=== PATIENT | female | born 1960 | race Caucasian/White ===

== ENCOUNTER 2016-12-11 07:20 | Day surgery (SDC) | payer MEDICAID ==
[~2016-12-11 07:20] MED LIST: Bupivacaine 0.25% 30 ML SDV ONE; Lactated Ringers 1,000 ML IV SCH; Lidocaine 1% 30 ML SDV ONE; Lidocaine 1% 4 ML ONE; Lidocaine 1%/Sod Bicarbonate in NS 8.4% 1 ML Syringe PRN; Midazolam 1 MG/ML 2 ML SDV ONE; Propofol 200 MG/20 ML SDV ONE; Sodium Chloride 0.9% 10 ML Syringe FLUSH PRN; Triamcinolone Acetonide 40 MG/ML 1 ML MDV ONE; fentaNYL 100 MCG/2 ML SDV ONE
--- NOTE | 2016-12-11 07:26 | PCM.PREANE ---
Preanesthetic Assessment - Anesthesia/Transfusion/Family Hx Anesthesia History: Prior Anesthesia Without Reaction Family History of Anesthesia Reaction: No Transfusion History: Prior Transfusion Without Reaction Intubation History: Unknown - Review of Systems General: Weakness, Fatigue Pulmonary: No Symptoms (COPD/ smokes 1/4 pack per day for 30years /History of pulmonary nodule), Cough Cardiovascular: Palpitations, Lightheadedness Gastrointestinal: No Symptoms (GERD) Neurological: Tingling (bilateral hands), Weakness Other: Reports: None (ADD), Sinus Problem (seasonal allergies), Neck Pain ( Chronic neck/back pain), Depression - Physical Assessment NPO Status Date: 12/10/16 NPO Status Time: 23:45 Pulse: 68 O2 Sat by Pulse Oximetry: 96 Respiratory Rate: 16 Blood Pressure: 145/95 Temperature: 36.9 C Height: 1.73 m Weight: 64 kg ASA Class: 2 Mental Status: Alert & Oriented x3 Airway Class: Mallampati = 2 Dentition: Reports: Broken Tooth/Teeth, Missing Tooth/Teeth, Caries Thyro-Mental Finger Breadths: 3 Mouth Opening Finger Breadths: 3 ROM/Head Extension: Full Lungs: Clear to Auscultation, Normal Respiratory Effort Cardiovascular: Regular Rate, Regular Rhythm, No Murmurs - Lab Values: Laboratory Last Values MRSA (PCR) Negative 11/21/16 12:58 Labs reviewed and noted and in acceptable ranges to proceed with scheduled surgery. - Imaging/EKG Impressions: EKG: SR rate= 65 - Allergies Allergies/Adverse Reactions: Allergies Allergy/AdvReac Type Severity Reaction Status Date / Time clindamycin Allergy Swelling Verified 12/10/16 14:01 latex Allergy Rash Verified 10/14/13 11:49 - Anesthesia Plan Pre-Op Medication Ordered: None - Acknowledgements Anesthesia Type Planned: MAC (Local/Mac) Pt an Appropriate Candidate for the Planned Anesthesia: Yes Alternatives and Risks of Anesthesia Discussed w Pt/Guardian: Yes Pt/Guardian Understands and Agrees with Anesthesia Plan: Yes PreAnesthesia Questionnaire Respiratory History: Reports: COPD, Other (See Below) Other Respiratory History: pulmonary nodule Musculoskeletal History: Reports: Other (See Below) Other Musculoskeletal History: carpal tunnel syndrome Psychiatric History: Reports: ADD, Depression - Past Surgical History HEENT Surgical History: Reports: Tonsillectomy GI Surgical History: Reports: Hernia Repair/Other, Other (See Below) Other GI Surgeries/Procedures: duodenal switch procedure, laparotomy Female Surgical History: Reports: Tubal Ligation - SUBSTANCE USE Smoking Status *Q: Current Every Day Smoker Tobacco Use Within Last Twelve Months: Cigarettes Recreational Drug Use History: No - HOME MEDS Home Medications: Home Meds Escitalopram [Lexapro] 5 mg PO DAILY 12/12/13 [History] Ibuprofen 200 mg PO ASDIRECTED 12/12/13 [History] buPROPion [Wellbutrin XL] 300 mg PO BEDTIME 12/12/13 [History] tiZANidine [Zanaflex] 2 mg PO DAILY 12/12/13 [History] Dextroamphetamine/Amphetamine [Amphetamine Salts] 30 mg PO DAILY 12/10/16 [ History] Ferrous Sulfate [Iron] 325 mg PO DAILY 12/10/16 [History] Meloxicam [Mobic] 15 mg PO DAILY 12/10/16 [History] Penicillin V Potassium [IJD: Penicillin V Potassium] 500 mg PO TID 12/10/16 [ History] Zolpidem [Ambien] 10 mg PO ASDIRECTED 12/10/16 [History] oxyCODONE HCl/Acetaminophen [Percocet 10-325 mg Tablet] 1 tab PO ASDIRECTED PRN 12/10/16 [History] - CURRENT (IN HOUSE) MEDS Current Meds: Current Medications Lactated Ringer's (Ringers, Lactated) 1,000 mls @ 125 mls/hr IV ASDIRECTED TEVIN Stop: 12/11/16 23:00 Lidocaine/Sodium Bicarbonate (Buffered Lidocaine 1% In Ns 8.4%) 0.25 ml .XX ONETIME PRN PRN Reason: Prior to IV Start Stop: 12/11/16 18:00 Sodium Chloride (Saline Flush) 10 ml FLUSH ASDIRECTED PRN PRN Reason: Keep Vein Open Stop: 12/11/16 18:00 Discontinued Medications Bupivacaine HCl (Marcaine 0.25%) Confirm Administered Dose 30 ml .ROUTE .STK- MED ONE Stop: 12/11/16 06:55 Fentanyl (Sublimaze) Confirm Administered Dose 100 mcg .ROUTE .STK-MED ONE Stop: 12/11/16 07:12 Lidocaine HCl (Xylocaine-Mpf 1%) Confirm Administered Dose 4 mls @ as directed .ROUTE .STK-MED ONE Stop: 12/11/16 07:11 Lidocaine HCl (Xylocaine-Mpf 1%) Confirm Administered Dose 30 ml .ROUTE .STK- MED ONE Stop: 12/11/16 06:55 Midazolam HCl (Versed 1 Mg/Ml) Confirm Administered Dose 2 mg .ROUTE .STK-MED ONE Stop: 12/11/16 07:12 Propofol (Diprivan 20 Ml) Confirm Administered Dose 200 mg .ROUTE .STK-MED ONE Stop: 12/11/16 07:11 Triamcinolone Acetonide (Kenalog-40) Confirm Administered Dose 40 mg .ROUTE .STK -MED ONE Stop: 12/11/16 06:55
[2016-12-11] MEDS ORDERED: Midazolam 1 MG/ML 2 ML SDV IVPUSH PRN (08:35)
[2016-12-11] MEDS ORDERED: Ondansetron 4 MG/2 ML SDV IVPUSH PRN (08:35)
[2016-12-11] MEDS ORDERED: HYDROmorphone 0.5 MG/0.5 ML Syringe IVPUSH PRN (08:35)
[2016-12-11] MEDS ORDERED: fentaNYL 100 MCG/2 ML SDV IVPUSH PRN (08:35)
[2016-12-11] MEDS ORDERED: Ketorolac 30 MG/ML SDV ONE (08:52)
--- NOTE | 2016-12-11 08:56 | PCM.OPNOTE ---
- General Post-Op/Procedure Note Date of Surgery/Procedure: 12/11/16 Operative Procedure(s): right carpal tunnel release with left carpal tunnel injection Pre Op Diagnosis: bilateral median nerve compression neuropathy Post-Op Diagnosis: Same Anesthesia Technique: Local, MAC Primary Surgeon: Hunter Dolan Anesthesia Provider: Christina Harrison Shop Clerk: Niesha Tijerina in mLs: 5 Complications: None Condition: Good
--- NOTE | 2016-12-11 09:00 | PCM48HPAN ---
Post Anesthesia Note - EVALUATION WITHIN 48HRS OF ANESTHETIC Vital Signs in Normal Range: Yes Patient Participated in Evaluation: Yes Respiratory Function Stable: Yes Airway Patent: Yes Cardiovascular Function Stable: Yes Hydration Status Stable: Yes Pain Control Satisfactory: Yes Nausea and Vomiting Control Satisfactory: Yes Mental Status Recovered: Yes
[2016-12-11 09:22] VITALS: BP 115/73
--- NOTE | 2016-12-11 09:43 | OR ---
DATE OF OPERATION: 12/11/2016 SURGEON: Hunter Dolan MD OPERATION PERFORMED: Right carpal tunnel release with left carpal tunnel injection. PREOPERATIVE DIAGNOSIS: Bilateral median nerve compression neuropathy. POSTOPERATIVE DIAGNOSIS: Bilateral median nerve compression neuropathy. ANESTHESIA: Local MAC. ANESTHESIA PROVIDER: Christina Harrison CRNA DOOR REPAIRER BUS: Niesha Tijerina PA-C. ESTIMATED BLOOD LOSS: Less than 5 mL. COMPLICATIONS: None. CONDITION: Stable. DESCRIPTION OF PROCEDURE: The patient was identified in the preoperative holding area. Proper site was marked and identified by the surgeon. The patient was taken back to the operating theater, where after adequate anesthesia, the patient's right upper extremity was sterilely prepped and draped in the usual sterile fashion. OR time-out was performed. The patient did not receive any antibiotics, as it is not indicated for soft tissue hand procedure. At this time, the right upper extremity was exsanguinated with the tourniquet and Esmarch was used as a tourniquet on the forearm, 1% lidocaine along with 0.25% Marcaine without epinephrine was then used to anesthetize the palmar cutaneous branch of median nerve along with the incisional site using Coats cardinal line and ulnar border of the fourth digit. Once this had set up, incision was made. Blunt dissection was taken down to palmar cutaneous fascia. Palmar cutaneous fascia was then incised with a Seneca blade. Transverse carpal ligament was then identified. A small rent was made in the transverse carpal ligament. A Brooten elevator was then placed distally underneath the transverse carpal ligament, and the Seneca blade was used to release it all the way distally and was found to be adequate released all the way distally. Attention was turned proximally and the transverse carpal ligament was then released along with a forearm fascia with tenotomy scissors under direct visualization making sure to keep the tips of ulnar to protect the palmar cutaneous branch of the median nerve. There was found to be adequate release both proximally and distally. At this time, adequate saline was irrigated through the wound, 4-0 nylon simple suture was used for closure of the skin. The patient had sterile soft dressing applied. At this time, injection was performed of the left carpal tunnel. Under sterile technique, 1 mL 40 mg Kenalog, 2 mL of 0.25% Marcaine were injected in the carpal tunnel in a distal 30 degree radial fashion from the ulnar side. The patient tolerated this as well. She was sent to PACU in stable condition. SCOTT /[id number]
== END 2016-12-11 09:59 | disposition home or self-care (01) ==
LOC: JD.SDS 07:20
PROVIDERS: ATTEND Orthopaedic Surgery
DX: G56.03 Carpal tunnel syndrome, bilateral upper limbs (principal); F90.9 Attention-deficit hyperactivity disorder, unspecified type; J44.9 Chronic obstructive pulmonary disease, unspecified; F32.9 Major depressive disorder, single episode, unspecified; K04.7 Periapical abscess without sinus; F17.210 Nicotine dependence, cigarettes, uncomplicated; Z87.01 Personal history of pneumonia (recurrent); Z98.51 Tubal ligation status; Z90.89 Acquired absence of other organs; Z98.890 Other specified postprocedural states; Z79.899 Other long term (current) drug therapy; Z88.1 Allergy status to other antibiotic agents; Z91.040 Latex allergy status
CPT/HCPCS: 20526; 64721; 87641; J1885; J2250; J3010; J3301; J3490; J7120; 01810; J2704

== ENCOUNTER 2017-12-07 21:45 | Emergency (ER) | payer MEDICAID ==
[2017-12-07 21:56] VITALS: BP 169/101
[2017-12-07] MEDS ORDERED: Penicillin V Potassium 500 MG Tab PO ONE (22:34)
--- NOTE | 2017-12-07 22:46 | EDM.PDOC ---
ED HPI GENERAL MEDICAL PROBLEM - General Chief Complaint: General Stated Complaint: INFECTED TOOTH,EAR PAIN,SHOULDER PAIN AND VAG BLEE Time Seen by Provider: 12/07/17 22:01 Source of Information: Reports: Patient History Limitations: Reports: No Limitations - History of Present Illness INITIAL COMMENTS - FREE TEXT/NARRATIVE: The patient states that she thinks she has an infection in her gums, as there has been purulent drainage, swelling, and tenderness for the past 2 days. No recent fever. The patient states that she has had similar symptoms for 2 years, although has not seen a dentist in many years. The patient states that she is usually treated with penicillin, which works well. The patient also states that she has chronic neck pain, and previously received local injections through a pain clinic, and was wondering if we can perform that service here in the ED. The patient also states that she has recently become sexually active, and is having some vaginal bleeding with intercourse. The patient's PCP is Shirin Teresa, however, the patient states that she would like to switch to a different provider. mouth, ears, neck, shoulders Pain Score (Numeric/FACES): 6 - Related Data Allergies Allergy/AdvReac Type Severity Reaction Status Date / Time clindamycin Allergy Swelling Verified 12/07/17 21:56 latex Allergy Rash Verified 12/07/17 21:56 Home Meds: Home Meds Escitalopram [Lexapro] 20 mg PO DAILY 12/12/13 [History] ClonazePAM [KlonoPIN] 1 mg PO DAILY 12/07/17 [History] Ferrous Sulfate [Iron] 325 mg PO DAILY 12/07/17 [History] Folic Acid/Multivit-Minerals [Women's Multivitamin Gummies] 200 mcg PO DAILY [History] Lactobacillus Acidophilus [Acidophilus] 1 each PO DAILY 12/07/17 [History] Methylphenidate HCl [Methylphenidate HCl Cd] 30 mg PO DAILY 12/07/17 [History] Naproxen Sodium 2 tab PO BID 12/07/17 [History] Pantoprazole [ProTONIX] 40 mg PO DAILY 12/07/17 [History] Penicillin V Potassium 1 tab PO Q6HR #40 tab 12/07/17 [Rx] Sertraline HCl [Zoloft] 75 mg PO DAILY 12/07/17 [History] Past Medical History HEENT History: Reports: Other (See Below) (Poor dentition) Respiratory History: Reports: COPD (possible - never tested) Genitourinary History: Reports: Renal Calculus Musculoskeletal History: Reports: Arthritis, Back Pain, Chronic, Neck Pain, Chronic Psychiatric History: Reports: Anxiety, Depression Endocrine/Metabolic History: Reports: Hypothyroidism (when young, since resolved ) Hematologic History: Reports: Anemia - Past Surgical History HEENT Surgical History: Reports: Oral Surgery (some wisdom teeth extracted), Tonsillectomy GI Surgical History: Reports: Bariatric Procedure (biliopancreatic diversion with duodenal switch 2007), Hernia, Abdominal (incisional, x 2), Other (See Below) (Exploratory laparotomy 2008) Female Surgical History: Reports: Tubal Ligation Social & Family History - Family History Family Medical History: Noncontributory - Tobacco Use Smoking Status *Q: Current Every Day Smoker Years of Tobacco use: 29 Packs/Tins Daily: 0.5 Packs/Tins Daily Comment: Down from 1 ppd - Caffeine Use Caffeine Use: Reports: Soda - Alcohol Use Alcohol Use History: Yes Alcohol Use Frequency: Socially - Recreational Drug Use Recreational Drug Use: Yes Drug Use in Last 12 Months: No Recreational Drug Type: Reports: Cocaine (last used at 17 years old), Marijuana/ Hashish (hasn't smoked for several years) - Living Situation & Occupation Living situation: Reports: , Alone 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 ED EXAM, GENERAL - Physical Exam Exam: See Below Exam Limited By: No Limitations General Appearance: Alert, WD/WN, No Apparent Distress Eye Exam: Bilateral Eye: EOMI, Normal Inspection Ears: Normal External Exam, Normal Canal, Hearing Grossly Normal, Normal TMs Nose: Normal Inspection, Normal Mucosa, No Blood Throat/Mouth: Normal Inspection, Normal Lips, Normal Oropharynx, Normal Voice, No Airway Compromise, Other (Tooth #1 deeply carious. Teeth #2 through 18 carious to the gingiva. Teeth #19, 20 absent. Teeth #21, 22, 23 carious to the gingiva. Teeth #24, 25 grossly normal. Teeth #26, 27 carious to the gingiva. Teeth #28, 29, 30, 31, 32 absent. There is swelling of the gingiva about teeth 8 , 9, and 10, possibly due to infection, although no pointing or purulent drainage seen.) Head: Atraumatic, Normocephalic Neck: Normal Inspection, Supple, Non-Tender, Full Range of Motion. No: Lymphadenopathy (L), Lymphadenopathy (R) Course - Vital Signs Last Recorded V/S: Last Vital Signs Temp 36.9 C 12/07/17 21:52 Pulse 81 12/07/17 21:52 Resp 18 12/07/17 21:52 BP 169/101 H 12/07/17 21:52 Pulse Ox 98 12/07/17 21:52 - Orders/Labs/Meds Meds: Medications Discontinued Medications Generic Name Dose Route Start Last Admin Trade Name Eleazarq PRN Reason Stop Dose Admin Penicillin V Potassium 500 mg 12/07/17 22:34 12/07/17 22:51 Veetids PO 12/07/17 22:35 500 mg ONETIME ONE Administration - Re-Assessments/Exams Free Text/Narrative Re-Assessment/Exam: 12/07/17 22:35 The patient may have an infection to her upper central gingiva, associated with extensive dental decay. I will therefore start the patient on oral penicillin, and prescribed a ten-day course. The patient will receive a list of local dentists, and I will refer her to the local social media designer office. With respect to the patient's chronic neck pain and vaginal bleeding with sexual intercourse, I will refer the patient to Dr. Soto as a PCP. Departure - Departure Time of Disposition: 22:39 Disposition: Home, Self-Care 01 Condition: Good Clinical Impression: Chronic dental infection, Chronic neck pain, Vaginal atrophy - Discharge Information *PRESCRIPTION DRUG MONITORING PROGRAM REVIEWED*: Not Applicable *COPY OF PRESCRIPTION DRUG MONITORING REPORT IN PATIENT MALIA: Not Applicable Prescriptions: Penicillin V Potassium 1 tab PO Q6HR #40 tab Referrals: PCP,None [Primary Care Provider] - Nevaeh Soto MD [Physician] - Forms: ED Department Discharge Additional Instructions: You were seen in the emergency room for a concern of an upper gum infection, chronic neck pain, and vaginal bleeding with intercourse. On examination, there is swelling of your upper gums, consistent with an underlying infection. You have been started on the antibiotic penicillin. A prescription for penicillin has been sent to the [facility], [address] [place] [address]. Take one tablet every 6 hours, as prescribed. Finish the entire prescription unless told otherwise by a doctor or dentist. Antibiotics alone will not fix this dental issue. It is imperative that you see a dentist for definitive treatment. A list of local dentists has been provided to you. We recommend that you contact the [facility] department at: [address] [place], [place] [address]Joanna Coram [phone] Follow-up with Dr. Nevaeh Soto as a primary care physician at the next available appointment, to discuss how to get neck injections, and to discuss your vaginal atrophy. If any other problems, please do not hesitate to return to the ER.
== END 2017-12-07 22:57 | disposition home or self-care (01) ==
LOC: JD.ED 21:45
DX: K04.7 Periapical abscess without sinus (principal); M54.2 Cervicalgia; N95.2 Postmenopausal atrophic vaginitis; J44.9 Chronic obstructive pulmonary disease, unspecified; G89.29 Other chronic pain; F17.210 Nicotine dependence, cigarettes, uncomplicated; Z88.1 Allergy status to other antibiotic agents; Z91.041 Radiographic dye allergy status; Z79.899 Other long term (current) drug therapy
CPT/HCPCS: 99282; A9270; 99283

== ENCOUNTER 2018-08-03 18:49 | Inpatient (IN) | payer MEDICAID, OTHER ==
--- NOTE | 2018-08-03 19:11 | EDM.PDOC ---
ED HPI GENERAL MEDICAL PROBLEM - General Chief Complaint: Behavioral/Psych Stated Complaint: BROUGHT IN BY [employer] POLICE Time Seen by Provider: 08/03/18 19:03 Source of Information: Reports: Patient, Police History Limitations: Reports: Altered Mental Status - History of Present Illness INITIAL COMMENTS - FREE TEXT/NARRATIVE: 58 year old female brought to the ED per [place] police officers. Bizarre behavior. Not acting normal. Seemed disoriented. Apparently she resides in [place]. She was found in her car only partially clad. No pants on. No shoes. Identified to be hypotheric at 92.3 rectally. She speaks but only a little.Confused and disoriented to place and time. Police had her blow into the breathalyzer and it was 0.0. Patient appears unkempt. No ketones on her breath . Vital signs show BP is low at 79/56 and heart rate was only 36. This suggests that she is likely under the influence of medications causing respiratory and cardiac depression. Possible sepsis needs to be ruled out. Blood glucose to be done now. Unclear what medication she is taking. Possibly has overdosed on multiple medications. Onset: Today Onset Date: 08/03/18 Onset Time: 18:30 (Please came in contact with her shortly after 1820 hrs. today.) Duration: Minutes: Location: Reports: Generalized (Generalized abnormal behavior confusion and disorientation. Found to be hypothermic hypotensive and bradycardic. Her mental status was not able to provide any useful history.) Quality: Reports: Other (Altered mental status) Severity: Moderate (Disoriented to place and time) Improves with: Reports: None Worsens with: Reports: None Context: Reports: Other (No drug paraphernalia identified. Blood alcohol is 0. It's unclear how she became so hypothermic and bradycardic.). Denies: Activity , Exercise, Lifting, Sick Contact, Trauma Associated Symptoms: Reports: Confusion, Malaise, Other. 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 Unknown.) - Related Data Allergies Allergy/AdvReac Type Severity Reaction Status Date / Time clindamycin Allergy Swelling Verified 08/03/18 19:06 latex Allergy Rash Verified 08/03/18 19:06 Home Meds: Home Meds Escitalopram [Lexapro] 20 mg PO DAILY 12/12/13 [History] ClonazePAM [KlonoPIN] 1 mg PO DAILY 12/07/17 [History] Ferrous Sulfate [Iron] 325 mg PO DAILY 12/07/17 [History] Folic Acid/Multivit-Minerals [Women's Multivitamin Gummies] 200 mcg PO DAILY [History] Lactobacillus Acidophilus [Acidophilus] 1 each PO DAILY 12/07/17 [History] Methylphenidate HCl [Methylphenidate HCl Cd] 30 mg PO DAILY 12/07/17 [History] Naproxen Sodium 2 tab PO BID 12/07/17 [History] Pantoprazole [ProTONIX] 40 mg PO DAILY 12/07/17 [History] Penicillin V Potassium 1 tab PO Q6HR #40 tab 12/07/17 [Rx] Sertraline HCl [Zoloft] 75 mg PO DAILY 12/07/17 [History] Past Medical History HEENT History: Reports: Other (See Below) (Poor dentition) Other HEENT History: frequent mouth infections Respiratory History: Reports: COPD (possible - never tested) Other Respiratory History: pulmonary nodule Genitourinary History: Reports: Renal Calculus Musculoskeletal History: Reports: Arthritis, Back Pain, Chronic, Neck Pain, Chronic Other Musculoskeletal History: carpal tunnel syndrome Psychiatric History: Reports: Anxiety, Depression Endocrine/Metabolic History: Reports: Hypothyroidism (when young, since resolved ) Hematologic History: Reports: Anemia - Past Surgical History HEENT Surgical History: Reports: Oral Surgery (some wisdom teeth extracted), Tonsillectomy GI Surgical History: Reports: Bariatric Procedure (biliopancreatic diversion with duodenal switch 2007), Hernia, Abdominal (incisional, x 2), Other (See Below) (Exploratory laparotomy 2008) Female Surgical History: Reports: Tubal Ligation Social & Family History - Family History Family Medical History: Noncontributory - Caffeine Use Caffeine Use: Reports: Soda - Living Situation & Occupation Living situation: Reports: , Alone 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 Again rectal temperature is 92.6. 33.7C.) Eye Exam: Bilateral Eye: Normal Inspection (No obvious scleral icterus.) Throat/Mouth: Other (Tongue is dry and coated. She appears to be volume depleted ) Head Exam: Atraumatic, Normocephalic, Other Neck: Normal Inspection. No: Carotid Bruit, Lymphadenopathy (L), Lymphadenopathy (R), Thyromegaly Respiratory/Chest: Lungs Clear, No Accessory Muscle Use (Shallow breathing at 12 /m. O2 sats 98% on room air), Chest Non-Tender, Other Cardiovascular: No Edema, No Gallop, No Murmur, No Rub, Bradycardia ( Bradycardia of 36-40/m). No: Regular Rate, Rhythm GI/Abdominal: Soft, Non-Tender (Bowel sounds are few and far between.), No Organomegaly, No Abnormal Bruit, No Mass, Pelvis Stable, Abnormal Bowel Sounds Neuro Exam (Abbreviated): Slow to Respond, Other (She is areflexic.). No: Alert , Oriented, CN II-XII Intact, Normal Cognition, Normal Reflexes DTR: 0: Bicep (R), Bicep (L), Patella (R), Patella (L), Achilles (R), Achilles ( L) Back Exam: Other (Very thin. All spinous processes are easily visible. No outward signs of trauma to her back or spine.) Extremities: Normal Inspection, Normal Range of Motion, Non-Tender, No Pedal Edema, Other (Extremities are very cool to touch.) Psychiatric: Other (Unable to assess affect. She is to disoriented and this time ) Skin Exam: Cool. No: Mottled, Pallor, Petechiae, Rash, Stud(s) EKG INTERPRETATION EKG Date: 08/03/18 Time: 19:15 Rhythm: Other Rate (Beats/Min): 33 [place]: Normal P-Wave: Present (With first-degree AV block) QRS: Other ST-T: Other (Diffuse repolarization abnormality with mild ST segment elevation V5 V6 lead 2 and 3. T wave flattening in aVL aVF) QT: Prolonged EKG Interpretation Comments: Abnormal ECG Course - Vital Signs Last Recorded V/S: Last Vital Signs Temp 36.4 C 08/04/18 00:00 Pulse 40 L 08/04/18 00:00 Resp 12 08/04/18 00:00 BP 81/53 L 08/04/18 00:00 Pulse Ox 95 08/04/18 00:00 - Orders/Labs/Meds Orders: Active Orders 24 hr Category Date Time Status Blood Glucose Check, Bedside [RC] ONETIME Care 08/03/18 19:05 Active EKG Documentation Completion [RC] STAT Care 08/03/18 19:04 Active Chest 1V Frontal [CR] Stat Exams 08/03/18 19:04 Taken CULTURE BLOOD [BC] Stat Lab 08/03/18 19:30 Received CULTURE BLOOD [BC] Stat Lab 08/03/18 19:50 Received D5 1/2 NS w/ 20 mEq/L KCl 1,000 ml Med 08/03/18 21:30 Active IV ASDIRECTED Blood Culture x2 Reflex Set [OM.PC] Stat Oth 08/03/18 19:05 Ordered Medication Orders Folic Acid (Folic Acid) 1 mg PO DAILY TEVIN Last Admin: 08/03/18 23:21 Dose: 1 mg Potassium Chloride/Dextrose/Sod Cl (D5 1/2 Ns W/ 20 Meq/L Kcl) 1,000 mls @ 150 mls/hr IV ASDIRECTED TEVIN Last Infusion: 08/03/18 23:18 Dose: 0 mls/hr Admin: 08/03/18 21:38 Dose: 150 mls/hr Ondansetron HCl (Zofran Odt) 4 mg PO Q6H PRN PRN Reason: nausea, able to take PO Ondansetron HCl (Zofran) 4 mg IV Q6H PRN PRN Reason: Nausea/Vomiting Labs: Laboratory Tests 08/03/18 08/03/18 08/03/18 Range/Units 19:27 19:35 19:37 WBC (3.98-10.04) K/mm3 RBC (3.98-5.22) M/mm3 Hgb (11.2-15.7) gm/L Hct (34.1-44.9) % MCV (79.4-94.8) fl MCH (25.6-32.2) pg MCHC (32.2-35.5) g/dl RDW Std Deviation (36.4-46.3) fL Plt Count (182-369) K/mm3 MPV (9.4-12.3) fl Neutrophils % (Manual) (40-60) % Band Neutrophils % (0-10) % Lymphocytes % (Manual) (20-40) % Atypical Lymphs % % Monocytes % (Manual) (2-10) % Eosinophils % (Manual) (0.7-5.8) % Basophils % (Manual) (0.1-1.2) Platelet Estimate Poikilocytosis Anisocytosis Ovalocytes Sunday Cells RBC Morph Comment ESR (0-20) mm/hr Sodium (136-145) mEq/L Potassium (3.5-5.1) mEq/L Chloride (98-107) mEq/L Carbon Dioxide (21-32) mEq/L Anion Gap (5-15) BUN (7-18) mg/dL Creatinine (0.55-1.02) mg/dL Est Cr Clr Drug Dosing Estimated GFR (MDRD) (>60) mL/min BUN/Creatinine Ratio (14-18) Glucose (74-106) mg/dL POC Glucose 169 H (70-105) mg/dL Serum Osmolality (280-300) mosm/kg Lactic Acid (0.4-2.0) mmol/L Calcium (8.5-10.1) mg/dL Magnesium (1.8-2.4) mg/dl Total Bilirubin (0.2-1.0) mg/dL AST (15-37) U/L ALT (14-59) U/L Alkaline Phosphatase (46-116) U/L Creatine Kinase (26-192) U/L CK-MB (CK-2) (0-3.6) ng/ml Troponin I (0.00-0.056) ng/mL C-Reactive Protein (<1.0) mg/dL NT-Pro-B Natriuret Pep (0-125) pg/mL Total Protein (6.4-8.2) g/dl Albumin (3.4-5.0) g/dl Globulin gm/dL Albumin/Globulin Ratio (1-2) TSH 3rd Generation (0.358-3.74) uIU/mL Urine Color Dark yellow (Yellow) Urine Appearance Slt cloudy H (Clear) Urine pH 6.0 (5.0-8.0) Ur Specific [place] > or = 1.030 (1.005-1.030) Urine Protein 2+ H (Negative) Urine Glucose (UA) Negative (Negative) Urine Ketones 1+ H (Negative) Urine Occult Blood Negative (Negative) Urine Nitrite Negative (Negative) Urine Bilirubin 1+ H (Negative) Urine Urobilinogen 0.2 (0.2-1.0) Ur Leukocyte Esterase Negative (Negative) Urine RBC 0-5 (0-5) /hpf Urine WBC 0-5 (0-5) /hpf Ur Squamous Epith Cells 0-5 (0-5) /hpf Calcium Oxalate Crystal Few H (NONE) Urine Bacteria Few H (FEW) /hpf Urine Mucus Moderate H (FEW) /hpf Salicylates (2.8-20) mg/dL Urine Opiates Screen Negative (BQBFEJ=463) Ur Buprenorphine Scrn Negative (CUTOFF=10) Ur Oxycodone Screen Negative (SEI4ZQ=992) Urine Methadone Screen Negative (ZLCABW=032) Ur Propoxyphene Screen Negative (LXYIRQ=224) Acetaminophen (10-30) ug/mL Ur Barbiturates Screen Negative (VYONAG=513) Ur Tricyclics Screen Negative (EQKGEL=577) Ur Phencyclidine Scrn Negative (CUTOFF=25) Ur Amphetamine Screen Presumptive positive H (SYDXXQ=674) U Methamphetamines Scrn Presumptive positive H (BAZQJM=999) U Benzodiazepines Scrn Negative (DBLCJS=459) U Cocaine Metab Screen Negative (LFWQVX=311) U Marijuana (THC) Screen Presumptive positive H (CUTOFF=50) Ethyl Alcohol (0.00) gm% Ketones (0.0-0.3) mM 08/03/18 08/03/18 08/03/18 Range/Units 19:50 19:50 19:50 WBC 7.90 (3.98-10.04) K/mm3 RBC 4.46 (3.98-5.22) M/mm3 Hgb 12.8 (11.2-15.7) gm/L Hct 39.8 (34.1-44.9) % MCV 89.2 (79.4-94.8) fl MCH 28.7 (25.6-32.2) pg MCHC 32.2 (32.2-35.5) g/dl RDW Std Deviation 48.4 H (36.4-46.3) fL Plt Count 221 (182-369) K/mm3 MPV 10.5 (9.4-12.3) fl Neutrophils % (Manual) 73 H (40-60) % Band Neutrophils % 0 (0-10) % Lymphocytes % (Manual) 22 (20-40) % Atypical Lymphs % 0 % Monocytes % (Manual) 3 (2-10) % Eosinophils % (Manual) 2 (0.7-5.8) % Basophils % (Manual) 0 L (0.1-1.2) Platelet Estimate Adequate Poikilocytosis 1+ slight Anisocytosis 1+ slight Ovalocytes 1+ slight Sunday Cells Few RBC Morph Comment Not Reportable ESR (0-20) mm/hr Sodium 140 (136-145) mEq/L Potassium 4.2 (3.5-5.1) mEq/L Chloride 110 H (98-107) mEq/L Carbon Dioxide 23 (21-32) mEq/L Anion Gap 11.2 (5-15) BUN 24 H (7-18) mg/dL Creatinine 1.1 H (0.55-1.02) mg/dL Est Cr Clr Drug Dosing TNP Estimated GFR (MDRD) 51 (>60) mL/min BUN/Creatinine Ratio 21.8 H (14-18) Glucose 162 H (74-106) mg/dL POC Glucose (70-105) mg/dL Serum Osmolality (280-300) mosm/kg Lactic Acid 2.3 H (0.4-2.0) mmol/L Calcium 9.5 (8.5-10.1) mg/dL Magnesium 2.2 (1.8-2.4) mg/dl Total Bilirubin 0.4 (0.2-1.0) mg/dL AST 17 (15-37) U/L ALT 42 (14-59) U/L Alkaline Phosphatase 207 H (46-116) U/L Creatine Kinase 35 (26-192) U/L CK-MB (CK-2) 1.0 (0-3.6) ng/ml Troponin I 0.018 (0.00-0.056) ng/mL C-Reactive Protein < 0.2 (<1.0) mg/dL NT-Pro-B Natriuret Pep (0-125) pg/mL Total Protein 5.1 L (6.4-8.2) g/dl Albumin 3.1 L (3.4-5.0) g/dl Globulin 2.0 gm/dL Albumin/Globulin Ratio 1.6 (1-2) TSH 3rd Generation 2.733 (0.358-3.74) uIU/mL Urine Color (Yellow) Urine Appearance (Clear) Urine pH (5.0-8.0) Ur Specific [place] (1.005-1.030) Urine Protein (Negative) Urine Glucose (UA) (Negative) Urine Ketones (Negative) Urine Occult Blood (Negative) Urine Nitrite (Negative) Urine Bilirubin (Negative) Urine Urobilinogen (0.2-1.0) Ur Leukocyte Esterase (Negative) Urine RBC (0-5) /hpf Urine WBC (0-5) /hpf Ur Squamous Epith Cells (0-5) /hpf Calcium Oxalate Crystal (NONE) Urine Bacteria (FEW) /hpf Urine Mucus (FEW) /hpf Salicylates (2.8-20) mg/dL Urine Opiates Screen (FWUJLH=242) Ur Buprenorphine Scrn (CUTOFF=10) Ur Oxycodone Screen (BVF3RK=666) Urine Methadone Screen (XGYCUZ=058) Ur Propoxyphene Screen (TQCEOL=466) Acetaminophen (10-30) ug/mL Ur Barbiturates Screen (ILPKAH=120) Ur Tricyclics Screen (UIFRZK=231) Ur Phencyclidine Scrn (CUTOFF=25) Ur Amphetamine Screen (WAWRMD=457) U Methamphetamines Scrn (QQPHLG=846) U Benzodiazepines Scrn (IXGIPN=081) U Cocaine Metab Screen (DXAIXZ=786) U Marijuana (THC) Screen (CUTOFF=50) Ethyl Alcohol (0.00) gm% Ketones (0.0-0.3) mM 08/03/18 08/03/18 08/03/18 Range/Units 19:50 19:50 19:50 WBC (3.98-10.04) K/mm3 RBC (3.98-5.22) M/mm3 Hgb (11.2-15.7) gm/L Hct (34.1-44.9) % MCV (79.4-94.8) fl MCH (25.6-32.2) pg MCHC (32.2-35.5) g/dl RDW Std Deviation (36.4-46.3) fL Plt Count (182-369) K/mm3 MPV (9.4-12.3) fl Neutrophils % (Manual) (40-60) % Band Neutrophils % (0-10) % Lymphocytes % (Manual) (20-40) % Atypical Lymphs % % Monocytes % (Manual) (2-10) % Eosinophils % (Manual) (0.7-5.8) % Basophils % (Manual) (0.1-1.2) Platelet Estimate Poikilocytosis Anisocytosis Ovalocytes [place] Cells RBC Morph Comment ESR 5 (0-20) mm/hr Sodium (136-145) mEq/L Potassium (3.5-5.1) mEq/L Chloride (98-107) mEq/L Carbon Dioxide (21-32) mEq/L Anion Gap (5-15) BUN (7-18) mg/dL Creatinine (0.55-1.02) mg/dL Est Cr Clr Drug Dosing Estimated GFR (MDRD) (>60) mL/min BUN/Creatinine Ratio (14-18) Glucose (74-106) mg/dL POC Glucose (70-105) mg/dL Serum Osmolality 294 (280-300) mosm/kg Lactic Acid (0.4-2.0) mmol/L Calcium (8.5-10.1) mg/dL Magnesium (1.8-2.4) mg/dl Total Bilirubin (0.2-1.0) mg/dL AST (15-37) U/L ALT (14-59) U/L Alkaline Phosphatase (46-116) U/L Creatine Kinase (26-192) U/L CK-MB (CK-2) (0-3.6) ng/ml Troponin I (0.00-0.056) ng/mL C-Reactive Protein (<1.0) mg/dL NT-Pro-B Natriuret Pep 32 (0-125) pg/mL Total Protein (6.4-8.2) g/dl Albumin (3.4-5.0) g/dl Globulin gm/dL Albumin/Globulin Ratio (1-2) TSH 3rd Generation (0.358-3.74) uIU/mL Urine Color (Yellow) Urine Appearance (Clear) Urine pH (5.0-8.0) Ur Specific [place] (1.005-1.030) Urine Protein (Negative) Urine Glucose (UA) (Negative) Urine Ketones (Negative) Urine Occult Blood (Negative) Urine Nitrite (Negative) Urine Bilirubin (Negative) Urine Urobilinogen (0.2-1.0) Ur Leukocyte Esterase (Negative) Urine RBC (0-5) /hpf Urine WBC (0-5) /hpf Ur Squamous Epith Cells (0-5) /hpf Calcium Oxalate Crystal (NONE) Urine Bacteria (FEW) /hpf Urine Mucus (FEW) /hpf Salicylates (2.8-20) mg/dL Urine Opiates Screen (CXEDIN=298) Ur Buprenorphine Scrn (CUTOFF=10) Ur Oxycodone Screen (ZOR3BM=645) Urine Methadone Screen (TCHNIE=334) Ur Propoxyphene Screen (NHJDIO=599) Acetaminophen 2 L (10-30) ug/mL Ur Barbiturates Screen (ZWSCWF=125) Ur Tricyclics Screen (VNECYO=569) Ur Phencyclidine Scrn (CUTOFF=25) Ur Amphetamine Screen (PSWZMW=294) U Methamphetamines Scrn (ZZRGLI=203) U Benzodiazepines Scrn (HFUUDK=495) U Cocaine Metab Screen (RLUJUA=177) U Marijuana (THC) Screen (CUTOFF=50) Ethyl Alcohol 0.00 (0.00) gm% Ketones (0.0-0.3) mM 08/03/18 08/03/18 Range/Units 19:50 19:50 WBC (3.98-10.04) K/mm3 RBC (3.98-5.22) M/mm3 Hgb (11.2-15.7) gm/L Hct (34.1-44.9) % MCV (79.4-94.8) fl MCH (25.6-32.2) pg MCHC (32.2-35.5) g/dl RDW Std Deviation (36.4-46.3) fL Plt Count (182-369) K/mm3 MPV (9.4-12.3) fl Neutrophils % (Manual) (40-60) % Band Neutrophils % (0-10) % Lymphocytes % (Manual) (20-40) % Atypical Lymphs % % Monocytes % (Manual) (2-10) % Eosinophils % (Manual) (0.7-5.8) % Basophils % (Manual) (0.1-1.2) Platelet Estimate Poikilocytosis Anisocytosis Ovalocytes Sunday Cells RBC Morph Comment ESR (0-20) mm/hr Sodium (136-145) mEq/L Potassium (3.5-5.1) mEq/L Chloride (98-107) mEq/L Carbon Dioxide (21-32) mEq/L Anion Gap (5-15) BUN (7-18) mg/dL Creatinine (0.55-1.02) mg/dL Est Cr Clr Drug Dosing Estimated GFR (MDRD) (>60) mL/min BUN/Creatinine Ratio (14-18) Glucose (74-106) mg/dL POC Glucose (70-105) mg/dL Serum Osmolality (280-300) mosm/kg Lactic Acid (0.4-2.0) mmol/L Calcium (8.5-10.1) mg/dL Magnesium (1.8-2.4) mg/dl Total Bilirubin (0.2-1.0) mg/dL AST (15-37) U/L ALT (14-59) U/L Alkaline Phosphatase (46-116) U/L Creatine Kinase (26-192) U/L CK-MB (CK-2) (0-3.6) ng/ml Troponin I (0.00-0.056) ng/mL C-Reactive Protein (<1.0) mg/dL NT-Pro-B Natriuret Pep (0-125) pg/mL Total Protein (6.4-8.2) g/dl Albumin (3.4-5.0) g/dl Globulin gm/dL Albumin/Globulin Ratio (1-2) TSH 3rd Generation (0.358-3.74) uIU/mL Urine Color (Yellow) Urine Appearance (Clear) Urine pH (5.0-8.0) Ur Specific [place] (1.005-1.030) Urine Protein (Negative) Urine Glucose (UA) (Negative) Urine Ketones (Negative) Urine Occult Blood (Negative) Urine Nitrite (Negative) Urine Bilirubin (Negative) Urine Urobilinogen (0.2-1.0) Ur Leukocyte Esterase (Negative) Urine RBC (0-5) /hpf Urine WBC (0-5) /hpf Ur Squamous Epith Cells (0-5) /hpf Calcium Oxalate Crystal (NONE) Urine Bacteria (FEW) /hpf Urine Mucus (FEW) /hpf Salicylates 1.7 L (2.8-20) mg/dL Urine Opiates Screen (VKAUAD=658) Ur Buprenorphine Scrn (CUTOFF=10) Ur Oxycodone Screen (BHZ1WE=657) Urine Methadone Screen (WGPYBM=133) Ur Propoxyphene Screen (IIFFIN=577) Acetaminophen (10-30) ug/mL Ur Barbiturates Screen (UMOWBK=789) Ur Tricyclics Screen (OWMZPM=400) Ur Phencyclidine Scrn (CUTOFF=25) Ur Amphetamine Screen (WESBIK=125) U Methamphetamines Scrn (GKCVNP=404) U Benzodiazepines Scrn (WFFMGZ=089) U Cocaine Metab Screen (WECWHT=119) U Marijuana (THC) Screen (CUTOFF=50) Ethyl Alcohol (0.00) gm% Ketones 0.15 (0.0-0.3) mM Meds: Medications Generic Name Dose Route Start Last Admin Trade Name Freq PRN Reason Stop Dose Admin Folic Acid 1 mg 08/03/18 23:00 08/03/18 23:21 Folic Acid PO 1 mg DAILY TEVIN Administration Potassium Chloride/Dextrose/Sod Cl 1,000 mls @ 150 mls/hr 08/03/18 21:30 23:18 D5 1/2 Ns W/ 20 Meq/L Kcl IV 0 mls/hr ASDIRECTED TEVIN Infusion Ondansetron HCl 4 mg 08/03/18 22:59 Zofran Odt PO Q6H PRN nausea, able to take PO Ondansetron HCl 4 mg 08/03/18 22:59 Zofran IV Q6H PRN Nausea/Vomiting Discontinued Medications Generic Name Dose Route Start Last Admin Trade Name Freq PRN Reason Stop Dose Admin Atropine Sulfate 0.5 mg 08/03/18 19:44 08/03/18 22:40 Atropine IVPUSH 08/03/18 19:45 Not Given ONETIME ONE Atropine Sulfate 0.5 mg 08/03/18 19:47 08/03/18 19:49 Atropine IVPUSH 08/03/18 19:48 Not Given ONETIME ONE Atropine Sulfate Confirm 08/03/18 19:45 08/03/18 19:49 Atropine 0.1 Mg/Ml Administered 08/03/18 19:46 1 mg Dose Administration 1 mg .ROUTE .STK-MED ONE Sodium Chloride 1,000 mls @ 999 mls/hr 08/03/18 19:15 08/03/18 19:12 Normal Saline IV 999 mls/hr ASDIRECTED TEVIN Administration Lactated Ringer's 1,000 mls @ 999 mls/hr 08/03/18 22:19 08/03/18 22:50 Ringers, Lactated IV 08/03/18 23:19 999 mls/hr .BOLUS ONE Administration Naloxone HCl 0.4 mg 08/03/18 19:27 08/03/18 20:09 Narcan IVPUSH 08/03/18 19:28 0.4 mg ONETIME ONE Administration Thiamine HCl 100 mg 08/03/18 22:46 08/03/18 23:21 Vitamin B-1 IVPUSH 08/03/18 22:47 100 mg ONETIME ONE Administration - Radiology Interpretation Free Text/Narrative:: 58-year-old female brought to the ED by police officers after they went to check on her as she was sitting in her car. Police officers indicate that she more or less phlegmonous him down. He found her to be acting very bizarre in reaching for things all over the car not making sense disoriented to time and place. Biceps are brought her to his vehicle and did a breathalyzer her blood alcohol was 0. When she arrives here she is disoriented to person place and time. Speech is somewhat dysarthric and nonsensical. He was found to be very cold with a core body temperature of 92.6 or hypothermia. Her cool clothing is completely soaking wet. It is currently raining out. Ambient temperatures around 42F. It appears that she had her window open or sunroof open as he is out of her vehicle. Was all wet inside. Therefore environmental exposure to wet clothing may be contributing to her hypothermia. Bedside blood sugar was 169. - Re-Assessments/Exams Free Text/Narrative Re-Assessment/Exam: 08/03/18 19:57 atropine 0.5 mg was given intravenously and it did improve her heart rate up into the 40s. Went from 39-46/m. Her pressure improved to 92/60. Mean arterial pressure is now 70. This suggest there may be some anti- cholinergic onboard causing bradycardia. CT head to be done and then she will have Narcan given IV be to see if it makes any difference in her altered level of consciousness. 08/03/18 20:15: Chest x-ray is within normal limits revealing no active infection. XL right is normal. CT of the brain is also completely normal. There is no intracranial infarcts ,bleeding or mass effect. Incidental bilateral maxillary sinus retention cyst appreciated 1.3 cm on the right side and 6.8 mm on the left. Given Narcan 0.4 mg IV with no response. Heart rate is now 43 and BP is 99/66. It appears that the bradycardia is reversing as she is being rewarmed. 08/03/18 21:05 vital signs continue to improve she continues to have a sinus bradycardia at 43/m. BP is now up to 108/64 with a mean arterial pressure of 77. Sats are 96% on room air. 08/03/18 21:10 Labs are finally back. White count is normal at 7.90 with 73% neutrophils no bands cells reported. Hemoglobin is 12.8 with hematocrit of 39.8. Platelet count is 221,000. ESR is 5.. Sodium is 140 with potassium of 4.2. Chloride is 110 with a bicarbonate of 23. And a gap is normal at 11.2. B1 is 24 the creatinine of 1.1. Estimated GFR is 51. BUN/creatinine ratio slightly elevated at 21.8. Glucose was 162 in the lab 169 at the bedside. Serum osmolality is normal at 294. Lactic acid is slightly elevated at 2.3. Calcium is 9.5 magnesium is 2.2. Liver function is normal other than alk phosphatase slightly elevated at 207. Bilirubin is 0.4. Total CPK is 35. CK-MB is 1.0 troponin I is less than 0.018. C-reactive protein is less than 0.2. BNP is 32. The total protein is 5.1 with an albumin fraction of 3.1 suggesting possible malnutrition. I would function is normal with a TSH of 2.7. Urinalysis shows 2+ proteinuria 1+ ketonuria 1+ bilirubin. The slide is revealing a few bacteria but no signs of infection. Salicylates were 1.7. Acetaminophen was to both normal. Drug screen is presumptive positive for methamphetamines and amphetamines. Also positive for marijuana. Serum ketones are 0.15. Blood alcohol was 0.00. Patient will be admitted to the hospital presumably to the ICU until her blood pressure and bradycardia improved. I suspect this is some form of drug toxidrome or overdose possibly clonazepam causing central nervous system depression. Hypothermia I believe is contributing strongly to the bradycardia in the initial hypotension. 08/03/18 21:13 I have left a message with Dr. Quinn apparently he is recreation therapist for hospitalist at this time.Second litre of IV fluids be D5 1 half normal saline with 20 mg of KCl per liter to run at 150 mils per hour 08/03/18 21:20: Spoke with Dr. Quinn and he agrees with admission to the ICU. Patient is much more alert and oriented. Normal we can gather she has not been taking any psychiatric medications. She states she started using meth about a month ago but denies using it over the last 4 days. He is running and going into a treatment program. She does admit that she did take and old prescription of muscle relaxant tablets --10 or more which could've been Soma, Flexeril, Norflex etc. she stated she just wanted to sleep. Is currently been residing with a boyfriend for the last 6 months and he's been using methamphetamines most of his life. She started using about a month ago. This could've indeed caused her symptom complex with anticholinergic side effects and lethargy and hypothermia from not moving i.e. deeply asleep. Departure - Departure Time of Disposition: 22:00 Disposition: Admitted As Inpatient 65 Condition: Fair Clinical Impression: Hypothermia due to non-environmental cause, Methamphetamine use Overdose of medication Qualifiers: Encounter type: initial encounter Injury intent: accidental or unintentional Qualified Code(s): T50.901A - Poisoning by unspecified drugs, medicaments and biological substances, accidental (unintentional), initial encounter - Discharge Information *PRESCRIPTION DRUG MONITORING PROGRAM REVIEWED*: Not Applicable *COPY OF PRESCRIPTION DRUG MONITORING REPORT IN PATIENT MALIA: Not Applicable - My Orders Last 24 Hours: My Active Orders 08/03/18 19:04 EKG Documentation Completion [RC] STAT Chest 1V Frontal [CR] Stat 08/03/18 19:05 Blood Glucose Check, Bedside [RC] ONETIME Blood Culture x2 Reflex Set [OM.PC] Stat 08/03/18 19:30 CULTURE BLOOD [BC] Stat 08/03/18 19:50 CULTURE BLOOD [BC] Stat 08/03/18 21:30 D5 1/2 NS w/ 20 mEq/L KCl 1,000 ml IV ASDIRECTED - Assessment/Plan Last 24 Hours: My Active Orders 08/03/18 19:04 EKG Documentation Completion [RC] STAT Chest 1V Frontal [CR] Stat 08/03/18 19:05 Blood Glucose Check, Bedside [RC] ONETIME Blood Culture x2 Reflex Set [OM.PC] Stat 08/03/18 19:30 CULTURE BLOOD [BC] Stat 08/03/18 19:50 CULTURE BLOOD [BC] Stat 08/03/18 21:30 D5 1/2 NS w/ 20 mEq/L KCl 1,000 ml IV ASDIRECTED
[2018-08-03] MEDS ORDERED: Sodium Chloride 0.9% 1,000 ML IV SCH (19:15)
[2018-08-03] MEDS ORDERED: Naloxone 0.4 MG/ML SDV IVPUSH ONE (19:27)
[2018-08-03] MEDS ORDERED: Atropine 0.4 MG/ML SDV IVPUSH ONE ×2 (19:44→19:47)
[2018-08-03] MEDS ORDERED: Atropine 0.1 MG/ML 10 ML Syringe ONE (19:45)
--- NOTE | 2018-08-03 20:31 | CT ---
Head CT Technique: Multiple axial sections through the brain were obtained. Intravenous contrast was not utilized. Comparison: No prior intracranial imaging is available. Findings: Ventricles along with basal cisterns and sulci over the convexities are within normal limits for the patient's age. No abnormal parenchymal densities are seen. No evidence of intracranial hemorrhage. No midline shift or mass effect is seen. Bone window settings were reviewed which shows slight mucosal thickening within the inferior left mastoid sinus which is likely incidental. Small retention cysts are noted within both maxillary sinuses which on the right side measures 1.3 cm and on the left side measures 6.8 mm. No acute calvarial abnormality is seen. Impression: 1. Incidental sinus findings as noted above. 2. No acute intracranial abnormality is identified. Diagnostic code #2
[2018-08-03] MEDS: D5 1/2 NS w/ 20 mEq/L KCl 1,000 ML IV SCH (21:38)
[2018-08-03] MEDS ORDERED: Lactated Ringers 1,000 ML IV ONE (22:19)
[2018-08-03] MEDS ORDERED: Thiamine 200 MG/2 ML MDV IVPUSH ONE (22:46)
[2018-08-03] MEDS ORDERED: Ondansetron 4 MG/2 ML SDV IV PRN (22:59)
[2018-08-03] MEDS ORDERED: Ondansetron 4 MG Tab.DIS PO PRN (22:59)
--- NOTE | 2018-08-03 23:20 | PCM.HP ---
H&P History of Present Illness - General Date of Service: 08/03/18 Admit Problem/Dx: Admission Diagnosis/Problem Admission Diagnosis/Problem Hypothermia Source of Information: Patient, Provider History Limitations: Reports: Altered Mental Status, Intoxication - History of Present Illness Initial Comments - Free Text/Narative: 58-year-old female was brought in by the police when they found her in her car went and cold. Patient states that her and her boyfriend been using methamphetamines and marijuana for the last several weeks. She states she has been smoking 2 bowls of meth per day. They have been clean for 3 days and she's had difficulty with withdrawal, so she took a handful of what she thinks were generic Flexeril. Patient states that she took this at 1730. She also states that previous to taking the medication she showered and had a wet hair which is why the police found her with wet hair. Apparently her and her boyfriend argued , she had another friend drive her to the hospital, he became concerned after she told more of his story, he left her in her car and she waved down a precinct police lieutenant. When she did arrive to the emergency room her temperature was 92.3 rectally. Please see the emergency room note for further details. In the emergency room she was only a little confused and is disoriented to place and time. She is now confused but does know place. Blood pressure in the emergency room was 79/56 with a pulse rate of only 36. They gave her atropine with minimal benefit, but a bolus of fluid did increase her blood pressure above the mean arterial pressure of 65. Nursing did fine 1 Zoloft pill in her hair. It was felt to admit the patient to the ICU for further evaluation. Poison control was contacted and they felt that if she did have an overdose of Flexeril should be more likely to be tachycardic then bradycardic. They stated that Flexeril and other muscle relaxers are more anticholinergic in their side effects. They did state that she may have some low blood pressure because of withdrawal from methamphetamines. She denies regular alcohol use. She states she only drinks a couple times a year. She denies any chest pain, orthopnea, PND , lower extremity edema, shortness of breath, or cough. She has past medical history of depression and she has Zoloft prescribed. - Related Data Allergies/Adverse Reactions: Allergies Allergy/AdvReac Type Severity Reaction Status Date / Time clindamycin Allergy Swelling Verified 08/03/18 19:06 latex Allergy Rash Verified 08/03/18 19:06 Home Medications: Home Meds Escitalopram [Lexapro] 20 mg PO DAILY 12/12/13 [History] ClonazePAM [KlonoPIN] 1 mg PO DAILY 12/07/17 [History] Ferrous Sulfate [Iron] 325 mg PO DAILY 12/07/17 [History] Folic Acid/Multivit-Minerals [Women's Multivitamin Gummies] 200 mcg PO DAILY [History] Lactobacillus Acidophilus [Acidophilus] 1 each PO DAILY 12/07/17 [History] Methylphenidate HCl [Methylphenidate HCl Cd] 30 mg PO DAILY 12/07/17 [History] Naproxen Sodium 2 tab PO BID 12/07/17 [History] Pantoprazole [ProTONIX] 40 mg PO DAILY 12/07/17 [History] Penicillin V Potassium 1 tab PO Q6HR #40 tab 12/07/17 [Rx] Sertraline HCl [Zoloft] 75 mg PO DAILY 12/07/17 [History] Past Medical History HEENT History: Reports: Other (See Below) Other HEENT History: frequent mouth infections Respiratory History: Reports: COPD Other Respiratory History: pulmonary nodule Genitourinary History: Reports: Renal Calculus Musculoskeletal History: Reports: Arthritis, Back Pain, Chronic, Neck Pain, Chronic Other Musculoskeletal History: carpal tunnel syndrome Psychiatric History: Reports: Anxiety, Depression Endocrine/Metabolic History: Reports: Hypothyroidism Hematologic History: Reports: Anemia - Past Surgical History HEENT Surgical History: Reports: Oral Surgery, Tonsillectomy GI Surgical History: Reports: Bariatric Procedure, Hernia, Abdominal, Other ( See Below) Female Surgical History: Reports: Tubal Ligation Social & Family History - Family History Family Medical History: Noncontributory - Tobacco Use Smoking Status *Q: Current Every Day Smoker Years of Tobacco use: 30 Packs/Tins Daily: 1 - Caffeine Use Caffeine Use: Reports: Coffee - Recreational Drug Use Recreational Drug Use: Yes Drug Use in Last 12 Months: Yes Recreational Drug Type: Reports: Marijuana/Hashish, Methamphetamine, Ritalin Recreational Drug Use Frequency: Daily - Living Situation & Occupation Living situation: Reports: , Alone Occupation: Employed (Starting with a [employer] service 12/08/2017) H&P Review of Systems - Review of Systems: Review Of Systems: ROS reveals no pertinent complaints other than HPI. HEENT: Reports: Visual Changes Exam - Exam Exam: See Below - Vital Signs Vital Signs: Last Vital Signs Temp 97.1 F 08/03/18 22:10 Pulse 39 L 08/03/18 22:10 Resp 12 08/03/18 22:10 BP 77/50 L 08/03/18 22:10 Pulse Ox 92 L 08/03/18 22:10 Weight: 131 lb 8 oz - Exam General: Cooperative, Lethargic HEENT: Conjunctiva Clear, EOMI, Mucosa Moist & Box, Posterior Pharynx Clear. No: Pupils Reactive (Pupils are 1-2 mm and slow reactive.) Neck: Supple, Trachea Midline Lungs: Normal Respiratory Effort, Crackles (Scattered) Cardiovascular: Regular Rhythm, Bradycardia GI/Abdominal Exam: Normal Bowel Sounds, Soft, Non-Tender, No Organomegaly, No Distention Back Exam: Normal Inspection, Full Range of Motion Extremities: Normal Inspection, Normal Range of Motion, Non-Tender, No Pedal Edema, Normal Capillary Refill Peripheral Pulses: 1+: Posterior Tibial (L), Posterior Tibial (R), Dorsalis Pedis (L), Dorsalis Pedis (R) Skin: Warm, Dry, Intact Neuro Extensive - Mental Status: Oriented x3, Slow Response to Commands Psychiatric: Withdrawal Symptoms - Patient Data Lab Results Last 24 hrs: Laboratory Results - last 24 hr 08/03/18 08/03/18 08/03/18 Range/Units 19:27 19:35 19:37 WBC (3.98-10.04) K/mm3 RBC (3.98-5.22) M/mm3 Hgb (11.2-15.7) gm/L Hct (34.1-44.9) % MCV (79.4-94.8) fl MCH (25.6-32.2) pg MCHC (32.2-35.5) g/dl RDW Std Deviation (36.4-46.3) fL Plt Count (182-369) K/mm3 MPV (9.4-12.3) fl Neutrophils % (Manual) (40-60) % Band Neutrophils % (0-10) % Lymphocytes % (Manual) (20-40) % Atypical Lymphs % % Monocytes % (Manual) (2-10) % Eosinophils % (Manual) (0.7-5.8) % Basophils % (Manual) (0.1-1.2) Platelet Estimate Poikilocytosis Anisocytosis Ovalocytes Sunday Cells RBC Morph Comment ESR (0-20) mm/hr Sodium (136-145) mEq/L Potassium (3.5-5.1) mEq/L Chloride (98-107) mEq/L Carbon Dioxide (21-32) mEq/L Anion Gap (5-15) BUN (7-18) mg/dL Creatinine (0.55-1.02) mg/dL Est Cr Clr Drug Dosing Estimated GFR (MDRD) (>60) mL/min BUN/Creatinine Ratio (14-18) Glucose (74-106) mg/dL POC Glucose 169 H (70-105) mg/dL Serum Osmolality (280-300) mosm/kg Lactic Acid (0.4-2.0) mmol/L Calcium (8.5-10.1) mg/dL Magnesium (1.8-2.4) mg/dl Total Bilirubin (0.2-1.0) mg/dL AST (15-37) U/L ALT (14-59) U/L Alkaline Phosphatase (46-116) U/L Creatine Kinase (26-192) U/L CK-MB (CK-2) (0-3.6) ng/ml Troponin I (0.00-0.056) ng/mL C-Reactive Protein (<1.0) mg/dL NT-Pro-B Natriuret Pep (0-125) pg/mL Total Protein (6.4-8.2) g/dl Albumin (3.4-5.0) g/dl Globulin gm/dL Albumin/Globulin Ratio (1-2) TSH 3rd Generation (0.358-3.74) uIU/mL Urine Color Dark yellow (Yellow) Urine Appearance Slt cloudy H (Clear) Urine pH 6.0 (5.0-8.0) Ur Specific [place] > or = 1.030 (1.005-1.030) Urine Protein 2+ H (Negative) Urine Glucose (UA) Negative (Negative) Urine Ketones 1+ H (Negative) Urine Occult Blood Negative (Negative) Urine Nitrite Negative (Negative) Urine Bilirubin 1+ H (Negative) Urine Urobilinogen 0.2 (0.2-1.0) Ur Leukocyte Esterase Negative (Negative) Urine RBC 0-5 (0-5) /hpf Urine WBC 0-5 (0-5) /hpf Ur Squamous Epith Cells 0-5 (0-5) /hpf Calcium Oxalate Crystal Few H (NONE) Urine Bacteria Few H (FEW) /hpf Urine Mucus Moderate H (FEW) /hpf Salicylates (2.8-20) mg/dL Urine Opiates Screen Negative (PVAHYB=022) Ur Buprenorphine Scrn Negative (CUTOFF=10) Ur Oxycodone Screen Negative (LNB4UF=389) Urine Methadone Screen Negative (EDAVYB=070) Ur Propoxyphene Screen Negative (VWIYOS=971) Acetaminophen (10-30) ug/mL Ur Barbiturates Screen Negative (HCYXXE=161) Ur Tricyclics Screen Negative (XYBDNE=566) Ur Phencyclidine Scrn Negative (CUTOFF=25) Ur Amphetamine Screen Presumptive positive H (EJOUMS=528) U Methamphetamines Scrn Presumptive positive H (NQFMWJ=800) U Benzodiazepines Scrn Negative (MBLIGR=749) U Cocaine Metab Screen Negative (YWLAVV=288) U Marijuana (THC) Screen Presumptive positive H (CUTOFF=50) Ethyl Alcohol (0.00) gm% Ketones (0.0-0.3) mM 08/03/18 08/03/18 08/03/18 Range/Units 19:50 19:50 19:50 WBC 7.90 (3.98-10.04) K/mm3 RBC 4.46 (3.98-5.22) M/mm3 Hgb 12.8 (11.2-15.7) gm/L Hct 39.8 (34.1-44.9) % MCV 89.2 (79.4-94.8) fl MCH 28.7 (25.6-32.2) pg MCHC 32.2 (32.2-35.5) g/dl RDW Std Deviation 48.4 H (36.4-46.3) fL Plt Count 221 (182-369) K/mm3 MPV 10.5 (9.4-12.3) fl Neutrophils % (Manual) 73 H (40-60) % Band Neutrophils % 0 (0-10) % Lymphocytes % (Manual) 22 (20-40) % Atypical Lymphs % 0 % Monocytes % (Manual) 3 (2-10) % Eosinophils % (Manual) 2 (0.7-5.8) % Basophils % (Manual) 0 L (0.1-1.2) Platelet Estimate Adequate Poikilocytosis 1+ slight Anisocytosis 1+ slight Ovalocytes 1+ slight Sunday Cells Few RBC Morph Comment Not Reportable ESR (0-20) mm/hr Sodium 140 (136-145) mEq/L Potassium 4.2 (3.5-5.1) mEq/L Chloride 110 H (98-107) mEq/L Carbon Dioxide 23 (21-32) mEq/L Anion Gap 11.2 (5-15) BUN 24 H (7-18) mg/dL Creatinine 1.1 H (0.55-1.02) mg/dL Est Cr Clr Drug Dosing TNP Estimated GFR (MDRD) 51 (>60) mL/min BUN/Creatinine Ratio 21.8 H (14-18) Glucose 162 H (74-106) mg/dL POC Glucose (70-105) mg/dL Serum Osmolality (280-300) mosm/kg Lactic Acid 2.3 H (0.4-2.0) mmol/L Calcium 9.5 (8.5-10.1) mg/dL Magnesium 2.2 (1.8-2.4) mg/dl Total Bilirubin 0.4 (0.2-1.0) mg/dL AST 17 (15-37) U/L ALT 42 (14-59) U/L Alkaline Phosphatase 207 H (46-116) U/L Creatine Kinase 35 (26-192) U/L CK-MB (CK-2) 1.0 (0-3.6) ng/ml Troponin I 0.018 (0.00-0.056) ng/mL C-Reactive Protein < 0.2 (<1.0) mg/dL NT-Pro-B Natriuret Pep (0-125) pg/mL Total Protein 5.1 L (6.4-8.2) g/dl Albumin 3.1 L (3.4-5.0) g/dl Globulin 2.0 gm/dL Albumin/Globulin Ratio 1.6 (1-2) TSH 3rd Generation 2.733 (0.358-3.74) uIU/mL Urine Color (Yellow) Urine Appearance (Clear) Urine pH (5.0-8.0) Ur Specific [place] (1.005-1.030) Urine Protein (Negative) Urine Glucose (UA) (Negative) Urine Ketones (Negative) Urine Occult Blood (Negative) Urine Nitrite (Negative) Urine Bilirubin (Negative) Urine Urobilinogen (0.2-1.0) Ur Leukocyte Esterase (Negative) Urine RBC (0-5) /hpf Urine WBC (0-5) /hpf Ur Squamous Epith Cells (0-5) /hpf Calcium Oxalate Crystal (NONE) Urine Bacteria (FEW) /hpf Urine Mucus (FEW) /hpf Salicylates (2.8-20) mg/dL Urine Opiates Screen (KBZRLK=149) Ur Buprenorphine Scrn (CUTOFF=10) Ur Oxycodone Screen (TPD6XF=422) Urine Methadone Screen (NGGPNU=670) Ur Propoxyphene Screen (NLSHPX=398) Acetaminophen (10-30) ug/mL Ur Barbiturates Screen (VOLING=352) Ur Tricyclics Screen (JKESSY=681) Ur Phencyclidine Scrn (CUTOFF=25) Ur Amphetamine Screen (SPSRFG=458) U Methamphetamines Scrn (VFMPXJ=314) U Benzodiazepines Scrn (WOIFGI=715) U Cocaine Metab Screen (NIQMIB=281) U Marijuana (THC) Screen (CUTOFF=50) Ethyl Alcohol (0.00) gm% Ketones (0.0-0.3) mM 08/03/18 08/03/18 08/03/18 Range/Units 19:50 19:50 19:50 WBC (3.98-10.04) K/mm3 RBC (3.98-5.22) M/mm3 Hgb (11.2-15.7) gm/L Hct (34.1-44.9) % MCV (79.4-94.8) fl MCH (25.6-32.2) pg MCHC (32.2-35.5) g/dl RDW Std Deviation (36.4-46.3) fL Plt Count (182-369) K/mm3 MPV (9.4-12.3) fl Neutrophils % (Manual) (40-60) % Band Neutrophils % (0-10) % Lymphocytes % (Manual) (20-40) % Atypical Lymphs % % Monocytes % (Manual) (2-10) % Eosinophils % (Manual) (0.7-5.8) % Basophils % (Manual) (0.1-1.2) Platelet Estimate Poikilocytosis Anisocytosis Ovalocytes Sunday Cells RBC Morph Comment ESR 5 (0-20) mm/hr Sodium (136-145) mEq/L Potassium (3.5-5.1) mEq/L Chloride (98-107) mEq/L Carbon Dioxide (21-32) mEq/L Anion Gap (5-15) BUN (7-18) mg/dL Creatinine (0.55-1.02) mg/dL Est Cr Clr Drug Dosing Estimated GFR (MDRD) (>60) mL/min BUN/Creatinine Ratio (14-18) Glucose (74-106) mg/dL POC Glucose (70-105) mg/dL Serum Osmolality 294 (280-300) mosm/kg Lactic Acid (0.4-2.0) mmol/L Calcium (8.5-10.1) mg/dL Magnesium (1.8-2.4) mg/dl Total Bilirubin (0.2-1.0) mg/dL AST (15-37) U/L ALT (14-59) U/L Alkaline Phosphatase (46-116) U/L Creatine Kinase (26-192) U/L CK-MB (CK-2) (0-3.6) ng/ml Troponin I (0.00-0.056) ng/mL C-Reactive Protein (<1.0) mg/dL NT-Pro-B Natriuret Pep 32 (0-125) pg/mL Total Protein (6.4-8.2) g/dl Albumin (3.4-5.0) g/dl Globulin gm/dL Albumin/Globulin Ratio (1-2) TSH 3rd Generation (0.358-3.74) uIU/mL Urine Color (Yellow) Urine Appearance (Clear) Urine pH (5.0-8.0) Ur Specific [place] (1.005-1.030) Urine Protein (Negative) Urine Glucose (UA) (Negative) Urine Ketones (Negative) Urine Occult Blood (Negative) Urine Nitrite (Negative) Urine Bilirubin (Negative) Urine Urobilinogen (0.2-1.0) Ur Leukocyte Esterase (Negative) Urine RBC (0-5) /hpf Urine WBC (0-5) /hpf Ur Squamous Epith Cells (0-5) /hpf Calcium Oxalate Crystal (NONE) Urine Bacteria (FEW) /hpf Urine Mucus (FEW) /hpf Salicylates (2.8-20) mg/dL Urine Opiates Screen (NTNUIN=142) Ur Buprenorphine Scrn (CUTOFF=10) Ur Oxycodone Screen (HBG3LQ=208) Urine Methadone Screen (HDJFVO=036) Ur Propoxyphene Screen (JUVTMI=777) Acetaminophen 2 L (10-30) ug/mL Ur Barbiturates Screen (LXJXKR=645) Ur Tricyclics Screen (HRHSEA=055) Ur Phencyclidine Scrn (CUTOFF=25) Ur Amphetamine Screen (LJXEVQ=417) U Methamphetamines Scrn (KCVTRP=808) U Benzodiazepines Scrn (SHNHAV=579) U Cocaine Metab Screen (IDUYOJ=242) U Marijuana (THC) Screen (CUTOFF=50) Ethyl Alcohol 0.00 (0.00) gm% Ketones (0.0-0.3) mM 08/03/18 08/03/18 Range/Units 19:50 19:50 WBC (3.98-10.04) K/mm3 RBC (3.98-5.22) M/mm3 Hgb (11.2-15.7) gm/L Hct (34.1-44.9) % MCV (79.4-94.8) fl MCH (25.6-32.2) pg MCHC (32.2-35.5) g/dl RDW Std Deviation (36.4-46.3) fL Plt Count (182-369) K/mm3 MPV (9.4-12.3) fl Neutrophils % (Manual) (40-60) % Band Neutrophils % (0-10) % Lymphocytes % (Manual) (20-40) % Atypical Lymphs % % Monocytes % (Manual) (2-10) % Eosinophils % (Manual) (0.7-5.8) % Basophils % (Manual) (0.1-1.2) Platelet Estimate Poikilocytosis Anisocytosis Ovalocytes Sunday Cells RBC Morph Comment ESR (0-20) mm/hr Sodium (136-145) mEq/L Potassium (3.5-5.1) mEq/L Chloride (98-107) mEq/L Carbon Dioxide (21-32) mEq/L Anion Gap (5-15) BUN (7-18) mg/dL Creatinine (0.55-1.02) mg/dL Est Cr Clr Drug Dosing Estimated GFR (MDRD) (>60) mL/min BUN/Creatinine Ratio (14-18) Glucose (74-106) mg/dL POC Glucose (70-105) mg/dL Serum Osmolality (280-300) mosm/kg Lactic Acid (0.4-2.0) mmol/L Calcium (8.5-10.1) mg/dL Magnesium (1.8-2.4) mg/dl Total Bilirubin (0.2-1.0) mg/dL AST (15-37) U/L ALT (14-59) U/L Alkaline Phosphatase (46-116) U/L Creatine Kinase (26-192) U/L CK-MB (CK-2) (0-3.6) ng/ml Troponin I (0.00-0.056) ng/mL C-Reactive Protein (<1.0) mg/dL NT-Pro-B Natriuret Pep (0-125) pg/mL Total Protein (6.4-8.2) g/dl Albumin (3.4-5.0) g/dl Globulin gm/dL Albumin/Globulin Ratio (1-2) TSH 3rd Generation (0.358-3.74) uIU/mL Urine Color (Yellow) Urine Appearance (Clear) Urine pH (5.0-8.0) Ur Specific [place] (1.005-1.030) Urine Protein (Negative) Urine Glucose (UA) (Negative) Urine Ketones (Negative) Urine Occult Blood (Negative) Urine Nitrite (Negative) Urine Bilirubin (Negative) Urine Urobilinogen (0.2-1.0) Ur Leukocyte Esterase (Negative) Urine RBC (0-5) /hpf Urine WBC (0-5) /hpf Ur Squamous Epith Cells (0-5) /hpf Calcium Oxalate Crystal (NONE) Urine Bacteria (FEW) /hpf Urine Mucus (FEW) /hpf Salicylates 1.7 L (2.8-20) mg/dL Urine Opiates Screen (FDRLPE=771) Ur Buprenorphine Scrn (CUTOFF=10) Ur Oxycodone Screen (ZOM8AO=817) Urine Methadone Screen (VBOMQB=626) Ur Propoxyphene Screen (OAGHWY=288) Acetaminophen (10-30) ug/mL Ur Barbiturates Screen (APEEEA=985) Ur Tricyclics Screen (XPZSIT=280) Ur Phencyclidine Scrn (CUTOFF=25) Ur Amphetamine Screen (IUPEYN=170) U Methamphetamines Scrn (NIWIJV=736) U Benzodiazepines Scrn (VRJBJI=101) U Cocaine Metab Screen (MXPJFY=662) U Marijuana (THC) Screen (CUTOFF=50) Ethyl Alcohol (0.00) gm% Ketones 0.15 (0.0-0.3) mM Result Diagrams: 08/03/18 19:50 08/03/18 19:50 Imaging Impressions Last 24 hrs: Chest x-ray is normal without infiltrate EKG INTERPRETATION EKG Date: 08/03/18 Rate (Beats/Min): 33 [place]: Normal P-Wave: Present QRS: Normal ST-T: Other (Diffuse repolarization abnormality with mild ST segment elevation in V5, V6, lead 2, and lead 3. T-wave flattening in aVL and aVF) QT: Prolonged EKG Interpretation Comments: Abnormal EKG - Problem List (1) Bradycardia SNOMED Code(s): 57036677 ICD Code: R00.1 - BRADYCARDIA, UNSPECIFIED Status: Acute Current Visit: Yes (2) Hypotension SNOMED Code(s): 58330387 ICD Code: I95.9 - HYPOTENSION, UNSPECIFIED Status: Acute Current Visit: Yes (3) Hypothermia due to non-environmental cause SNOMED Code(s): 042351917 ICD Code: R68.0 - HYPOTHERMIA, NOT ASSOCIATED W LOW ENVIRONMENTAL TEMPERATURE Status: Acute Current Visit: Yes (4) Methamphetamine use SNOMED Code(s): 303567625 ICD Code: F15.10 - OTHER STIMULANT ABUSE, UNCOMPLICATED Status: Acute Current Visit: Yes (5) Overdose of medication SNOMED Code(s): 78451760 ICD Code: T50.901A - POISONING BY UNSP DRUG/MEDS/BIOL SUBST, ACCIDENTAL, INIT Status: Acute Current Visit: Yes Qualifiers: Encounter type: initial encounter Injury intent: accidental or unintentional Qualified Code(s): T50.901A - Poisoning by unspecified drugs, medicaments and biological substances, accidental (unintentional), initial encounter Problem List Initiated/Reviewed/Updated: Yes Orders Last 24hrs: Active Orders 24 hr Category Date Time Status Admission Status [Patient Status] [ADT] Routine ADT 08/03/18 21:37 Active Patient Status [ADT] Routine ADT 08/03/18 21:32 Active Bedrest Bathroom Privileges [RC] ASDIRECTED Care 08/03/18 22:59 Active Blood Glucose Check, Bedside [RC] ONETIME Care 08/03/18 19:05 Active EKG Documentation Completion [RC] STAT Care 08/03/18 19:04 Active Height and Weight [RC] DAILY Care 08/03/18 22:59 Active Intake and Output [RC] QSHIFT Care 08/03/18 23:01 Active Oxygen Therapy [RC] PRN Care 08/03/18 23:00 Active VTE/DVT Education [RC] BID Care 08/03/18 23:00 Active Vital Signs [RC] Q4HR Care 08/03/18 23:00 Active Consult to Case Management/Baggage Porter [CONS] Cons 08/03/18 22:59 Active Routine Clear Liquid Diet [DIET] Diet 08/04/18 Breakfast Active Chest 1V Frontal [CR] Stat Exams 08/03/18 19:04 Taken BLOOD GAS ARTERIAL [BG] Timed Lab 08/04/18 05:00 Ordered C-REACTIVE PROTEIN [CHEM] AM Lab 08/04/18 05:11 Ordered CBC WITH AUTO DIFF [HEME] AM Lab 08/04/18 05:11 Ordered COMPREHENSIVE METABOLIC PN,CMP [CHEM] AM Lab 08/04/18 05:11 Ordered CREATINE KINASE,CK [CHEM] AM Lab 08/04/18 05:11 Ordered CULTURE BLOOD [BC] Stat Lab 08/03/18 19:30 Received CULTURE BLOOD [BC] Stat Lab 08/03/18 19:50 Received SEDIMENTATION RATE AUTO [HEME] AM Lab 08/04/18 05:11 Ordered TROPONIN I [CHEM] AM Lab 08/04/18 05:11 Ordered D5 1/2 NS w/ 20 mEq/L KCl 1,000 ml Med 08/03/18 21:30 Active IV ASDIRECTED Folic Acid Med 08/03/18 23:00 Active 1 mg PO DAILY Ondansetron [Zofran ODT] Med 08/03/18 22:59 Active 4 mg PO Q6H PRN Ondansetron [Zofran] Med 08/03/18 22:59 Active 4 mg IV Q6H PRN Blood Culture x2 Reflex Set [OM.PC] Stat Oth 08/03/18 19:05 Ordered Resuscitation Status Routine Resus Stat 08/03/18 22:59 Ordered Medication Orders Folic Acid (Folic Acid) 1 mg PO DAILY TEVIN Potassium Chloride/Dextrose/Sod Cl (D5 1/2 Ns W/ 20 Meq/L Kcl) 1,000 mls @ 150 mls/hr IV ASDIRECTED TEVIN Last Infusion: 08/03/18 23:18 Dose: 0 mls/hr Admin: 08/03/18 21:38 Dose: 150 mls/hr Ondansetron HCl (Zofran Odt) 4 mg PO Q6H PRN PRN Reason: nausea, able to take PO Ondansetron HCl (Zofran) 4 mg IV Q6H PRN PRN Reason: Nausea/Vomiting Assessment/Plan Comment:: Methamphetamine withdrawal * Patient's severe bradycardia may be secondary to methamphetamine withdrawal. * Her symptoms are not consistent with anticholinergic side effects. She has bradycardia and pinpoint pupils which are exact opposite of what you would expect from an overdose of muscle relaxers. * Polysubstance abuse more likely to be the cause of her current condition. * Monitor overnight in ICU. Follow her blood pressure and pulse closely. Overdose of muscle relaxant * As above * Poison control was consultation and they felt that watchful waiting was the best approach. Bradycardia * Suspect that as she recovers from her methamphetamine withdrawal and any active chemical that she is taking her pulse should improve. Hypotension * Patient was given 1 L IV fluids in the emergency room. * Repeat 1 L lactated Ringer's bolus * Maintain IV fluids at 150 mL after bolus. Chronic medical illnesses to include: Depression, COPD, chronic low back pain Discharge planning will be consultation in the morning. Patient would benefit from drug rehabilitation services.
[2018-08-03] MEDS: Folic Acid 1 MG Tab PO SCH (23:21)
[2018-08-04] MEDS ORDERED: Atropine 0.4 MG/ML SDV IVPUSH ONE (04:34)
--- NOTE | 2018-08-04 04:38 | PCM.PN ---
- General Info Date of Service: 08/04/18 Admission Dx/Problem (Free Text): Overdose of medication Subjective Update: Blood pressure remains low at 80/60. Sinus bradycardia at 40/m. Suggest repeating atropine 0.5 mg IV to see if this will increase heart rate and pressure. - Review of Systems Cardiovascular: Reports: Other (Persistent bradycardia and hypotension.) - Patient Data Vitals - Most Recent: Last Vital Signs Temp 36.4 C 08/04/18 00:00 Pulse 40 L 08/04/18 00:00 Resp 12 08/04/18 00:00 BP 81/53 L 08/04/18 00:00 Pulse Ox 95 08/04/18 00:00 Weight - Most Recent: 59.647 kg I&O - Last 24 Hours: Intake & Output 08/03/18 08/03/18 08/04/18 14:59 22:59 06:59 Output Total 450 Balance -450 Lab Results Last 24 Hours: Laboratory Results - last 24 hr 08/03/18 08/03/18 08/03/18 Range/Units 19:27 19:35 19:37 WBC (3.98-10.04) K/mm3 RBC (3.98-5.22) M/mm3 Hgb (11.2-15.7) gm/L Hct (34.1-44.9) % MCV (79.4-94.8) fl MCH (25.6-32.2) pg MCHC (32.2-35.5) g/dl RDW Std Deviation (36.4-46.3) fL Plt Count (182-369) K/mm3 MPV (9.4-12.3) fl Neutrophils % (Manual) (40-60) % Band Neutrophils % (0-10) % Lymphocytes % (Manual) (20-40) % Atypical Lymphs % % Monocytes % (Manual) (2-10) % Eosinophils % (Manual) (0.7-5.8) % Basophils % (Manual) (0.1-1.2) Platelet Estimate Poikilocytosis Anisocytosis Ovalocytes Sunday Cells RBC Morph Comment ESR (0-20) mm/hr Sodium (136-145) mEq/L Potassium (3.5-5.1) mEq/L Chloride (98-107) mEq/L Carbon Dioxide (21-32) mEq/L Anion Gap (5-15) BUN (7-18) mg/dL Creatinine (0.55-1.02) mg/dL Est Cr Clr Drug Dosing Estimated GFR (MDRD) (>60) mL/min BUN/Creatinine Ratio (14-18) Glucose (74-106) mg/dL POC Glucose 169 H (70-105) mg/dL Serum Osmolality (280-300) mosm/kg Lactic Acid (0.4-2.0) mmol/L Calcium (8.5-10.1) mg/dL Magnesium (1.8-2.4) mg/dl Total Bilirubin (0.2-1.0) mg/dL AST (15-37) U/L ALT (14-59) U/L Alkaline Phosphatase (46-116) U/L Creatine Kinase (26-192) U/L CK-MB (CK-2) (0-3.6) ng/ml Troponin I (0.00-0.056) ng/mL C-Reactive Protein (<1.0) mg/dL NT-Pro-B Natriuret Pep (0-125) pg/mL Total Protein (6.4-8.2) g/dl Albumin (3.4-5.0) g/dl Globulin gm/dL Albumin/Globulin Ratio (1-2) TSH 3rd Generation (0.358-3.74) uIU/mL Urine Color Dark yellow (Yellow) Urine Appearance Slt cloudy H (Clear) Urine pH 6.0 (5.0-8.0) Ur Specific Skippers > or = 1.030 (1.005-1.030) Urine Protein 2+ H (Negative) Urine Glucose (UA) Negative (Negative) Urine Ketones 1+ H (Negative) Urine Occult Blood Negative (Negative) Urine Nitrite Negative (Negative) Urine Bilirubin 1+ H (Negative) Urine Urobilinogen 0.2 (0.2-1.0) Ur Leukocyte Esterase Negative (Negative) Urine RBC 0-5 (0-5) /hpf Urine WBC 0-5 (0-5) /hpf Ur Squamous Epith Cells 0-5 (0-5) /hpf Calcium Oxalate Crystal Few H (NONE) Urine Bacteria Few H (FEW) /hpf Urine Mucus Moderate H (FEW) /hpf Salicylates (2.8-20) mg/dL Urine Opiates Screen Negative (IGJIIV=988) Ur Buprenorphine Scrn Negative (CUTOFF=10) Ur Oxycodone Screen Negative (DHH1KI=087) Urine Methadone Screen Negative (GPUCPH=975) Ur Propoxyphene Screen Negative (XEOXJQ=825) Acetaminophen (10-30) ug/mL Ur Barbiturates Screen Negative (HEURSB=639) Ur Tricyclics Screen Negative (RNUWNT=819) Ur Phencyclidine Scrn Negative (CUTOFF=25) Ur Amphetamine Screen Presumptive positive H (JEWALS=725) U Methamphetamines Scrn Presumptive positive H (FMGALO=511) U Benzodiazepines Scrn Negative (XCPHHH=604) U Cocaine Metab Screen Negative (ZMUGCJ=834) U Marijuana (THC) Screen Presumptive positive H (CUTOFF=50) Ethyl Alcohol (0.00) gm% Ketones (0.0-0.3) mM 08/03/18 08/03/18 08/03/18 Range/Units 19:50 19:50 19:50 WBC 7.90 (3.98-10.04) K/mm3 RBC 4.46 (3.98-5.22) M/mm3 Hgb 12.8 (11.2-15.7) gm/L Hct 39.8 (34.1-44.9) % MCV 89.2 (79.4-94.8) fl MCH 28.7 (25.6-32.2) pg MCHC 32.2 (32.2-35.5) g/dl RDW Std Deviation 48.4 H (36.4-46.3) fL Plt Count 221 (182-369) K/mm3 MPV 10.5 (9.4-12.3) fl Neutrophils % (Manual) 73 H (40-60) % Band Neutrophils % 0 (0-10) % Lymphocytes % (Manual) 22 (20-40) % Atypical Lymphs % 0 % Monocytes % (Manual) 3 (2-10) % Eosinophils % (Manual) 2 (0.7-5.8) % Basophils % (Manual) 0 L (0.1-1.2) Platelet Estimate Adequate Poikilocytosis 1+ slight Anisocytosis 1+ slight Ovalocytes 1+ slight [place] Cells Few RBC Morph Comment Not Reportable ESR (0-20) mm/hr Sodium 140 (136-145) mEq/L Potassium 4.2 (3.5-5.1) mEq/L Chloride 110 H (98-107) mEq/L Carbon Dioxide 23 (21-32) mEq/L Anion Gap 11.2 (5-15) BUN 24 H (7-18) mg/dL Creatinine 1.1 H (0.55-1.02) mg/dL Est Cr Clr Drug Dosing TNP Estimated GFR (MDRD) 51 (>60) mL/min BUN/Creatinine Ratio 21.8 H (14-18) Glucose 162 H (74-106) mg/dL POC Glucose (70-105) mg/dL Serum Osmolality (280-300) mosm/kg Lactic Acid 2.3 H (0.4-2.0) mmol/L Calcium 9.5 (8.5-10.1) mg/dL Magnesium 2.2 (1.8-2.4) mg/dl Total Bilirubin 0.4 (0.2-1.0) mg/dL AST 17 (15-37) U/L ALT 42 (14-59) U/L Alkaline Phosphatase 207 H (46-116) U/L Creatine Kinase 35 (26-192) U/L CK-MB (CK-2) 1.0 (0-3.6) ng/ml Troponin I 0.018 (0.00-0.056) ng/mL C-Reactive Protein < 0.2 (<1.0) mg/dL NT-Pro-B Natriuret Pep (0-125) pg/mL Total Protein 5.1 L (6.4-8.2) g/dl Albumin 3.1 L (3.4-5.0) g/dl Globulin 2.0 gm/dL Albumin/Globulin Ratio 1.6 (1-2) TSH 3rd Generation 2.733 (0.358-3.74) uIU/mL Urine Color (Yellow) Urine Appearance (Clear) Urine pH (5.0-8.0) Ur Specific Skippers (1.005-1.030) Urine Protein (Negative) Urine Glucose (UA) (Negative) Urine Ketones (Negative) Urine Occult Blood (Negative) Urine Nitrite (Negative) Urine Bilirubin (Negative) Urine Urobilinogen (0.2-1.0) Ur Leukocyte Esterase (Negative) Urine RBC (0-5) /hpf Urine WBC (0-5) /hpf Ur Squamous Epith Cells (0-5) /hpf Calcium Oxalate Crystal (NONE) Urine Bacteria (FEW) /hpf Urine Mucus (FEW) /hpf Salicylates (2.8-20) mg/dL Urine Opiates Screen (WNPKVM=319) Ur Buprenorphine Scrn (CUTOFF=10) Ur Oxycodone Screen (DGS4PJ=445) Urine Methadone Screen (MHOTCV=897) Ur Propoxyphene Screen (MRIYZG=234) Acetaminophen (10-30) ug/mL Ur Barbiturates Screen (XDTBIT=582) Ur Tricyclics Screen (JYFWNV=739) Ur Phencyclidine Scrn (CUTOFF=25) Ur Amphetamine Screen (ENJIWW=382) U Methamphetamines Scrn (ZZETIM=875) U Benzodiazepines Scrn (IYWTRP=708) U Cocaine Metab Screen (JNFEOP=047) U Marijuana (THC) Screen (CUTOFF=50) Ethyl Alcohol (0.00) gm% Ketones (0.0-0.3) mM 08/03/18 08/03/18 08/03/18 Range/Units 19:50 19:50 19:50 WBC (3.98-10.04) K/mm3 RBC (3.98-5.22) M/mm3 Hgb (11.2-15.7) gm/L Hct (34.1-44.9) % MCV (79.4-94.8) fl MCH (25.6-32.2) pg MCHC (32.2-35.5) g/dl RDW Std Deviation (36.4-46.3) fL Plt Count (182-369) K/mm3 MPV (9.4-12.3) fl Neutrophils % (Manual) (40-60) % Band Neutrophils % (0-10) % Lymphocytes % (Manual) (20-40) % Atypical Lymphs % % Monocytes % (Manual) (2-10) % Eosinophils % (Manual) (0.7-5.8) % Basophils % (Manual) (0.1-1.2) Platelet Estimate Poikilocytosis Anisocytosis Ovalocytes [place] Cells RBC Morph Comment ESR 5 (0-20) mm/hr Sodium (136-145) mEq/L Potassium (3.5-5.1) mEq/L Chloride (98-107) mEq/L Carbon Dioxide (21-32) mEq/L Anion Gap (5-15) BUN (7-18) mg/dL Creatinine (0.55-1.02) mg/dL Est Cr Clr Drug Dosing Estimated GFR (MDRD) (>60) mL/min BUN/Creatinine Ratio (14-18) Glucose (74-106) mg/dL POC Glucose (70-105) mg/dL Serum Osmolality 294 (280-300) mosm/kg Lactic Acid (0.4-2.0) mmol/L Calcium (8.5-10.1) mg/dL Magnesium (1.8-2.4) mg/dl Total Bilirubin (0.2-1.0) mg/dL AST (15-37) U/L ALT (14-59) U/L Alkaline Phosphatase (46-116) U/L Creatine Kinase (26-192) U/L CK-MB (CK-2) (0-3.6) ng/ml Troponin I (0.00-0.056) ng/mL C-Reactive Protein (<1.0) mg/dL NT-Pro-B Natriuret Pep 32 (0-125) pg/mL Total Protein (6.4-8.2) g/dl Albumin (3.4-5.0) g/dl Globulin gm/dL Albumin/Globulin Ratio (1-2) TSH 3rd Generation (0.358-3.74) uIU/mL Urine Color (Yellow) Urine Appearance (Clear) Urine pH (5.0-8.0) Ur Specific Skippers (1.005-1.030) Urine Protein (Negative) Urine Glucose (UA) (Negative) Urine Ketones (Negative) Urine Occult Blood (Negative) Urine Nitrite (Negative) Urine Bilirubin (Negative) Urine Urobilinogen (0.2-1.0) Ur Leukocyte Esterase (Negative) Urine RBC (0-5) /hpf Urine WBC (0-5) /hpf Ur Squamous Epith Cells (0-5) /hpf Calcium Oxalate Crystal (NONE) Urine Bacteria (FEW) /hpf Urine Mucus (FEW) /hpf Salicylates (2.8-20) mg/dL Urine Opiates Screen (ZCDROQ=739) Ur Buprenorphine Scrn (CUTOFF=10) Ur Oxycodone Screen (MXP3MJ=285) Urine Methadone Screen (NTKJJR=547) Ur Propoxyphene Screen (MDNQKD=640) Acetaminophen 2 L (10-30) ug/mL Ur Barbiturates Screen (GHBHZK=955) Ur Tricyclics Screen (WGXSDN=766) Ur Phencyclidine Scrn (CUTOFF=25) Ur Amphetamine Screen (QEQAMT=699) U Methamphetamines Scrn (HDSEJF=160) U Benzodiazepines Scrn (GPLKJU=463) U Cocaine Metab Screen (LBYBCE=259) U Marijuana (THC) Screen (CUTOFF=50) Ethyl Alcohol 0.00 (0.00) gm% Ketones (0.0-0.3) mM 08/03/18 08/03/18 Range/Units 19:50 19:50 WBC (3.98-10.04) K/mm3 RBC (3.98-5.22) M/mm3 Hgb (11.2-15.7) gm/L Hct (34.1-44.9) % MCV (79.4-94.8) fl MCH (25.6-32.2) pg MCHC (32.2-35.5) g/dl RDW Std Deviation (36.4-46.3) fL Plt Count (182-369) K/mm3 MPV (9.4-12.3) fl Neutrophils % (Manual) (40-60) % Band Neutrophils % (0-10) % Lymphocytes % (Manual) (20-40) % Atypical Lymphs % % Monocytes % (Manual) (2-10) % Eosinophils % (Manual) (0.7-5.8) % Basophils % (Manual) (0.1-1.2) Platelet Estimate Poikilocytosis Anisocytosis Ovalocytes [place] Cells RBC Morph Comment ESR (0-20) mm/hr Sodium (136-145) mEq/L Potassium (3.5-5.1) mEq/L Chloride (98-107) mEq/L Carbon Dioxide (21-32) mEq/L Anion Gap (5-15) BUN (7-18) mg/dL Creatinine (0.55-1.02) mg/dL Est Cr Clr Drug Dosing Estimated GFR (MDRD) (>60) mL/min BUN/Creatinine Ratio (14-18) Glucose (74-106) mg/dL POC Glucose (70-105) mg/dL Serum Osmolality (280-300) mosm/kg Lactic Acid (0.4-2.0) mmol/L Calcium (8.5-10.1) mg/dL Magnesium (1.8-2.4) mg/dl Total Bilirubin (0.2-1.0) mg/dL AST (15-37) U/L ALT (14-59) U/L Alkaline Phosphatase (46-116) U/L Creatine Kinase (26-192) U/L CK-MB (CK-2) (0-3.6) ng/ml Troponin I (0.00-0.056) ng/mL C-Reactive Protein (<1.0) mg/dL NT-Pro-B Natriuret Pep (0-125) pg/mL Total Protein (6.4-8.2) g/dl Albumin (3.4-5.0) g/dl Globulin gm/dL Albumin/Globulin Ratio (1-2) TSH 3rd Generation (0.358-3.74) uIU/mL Urine Color (Yellow) Urine Appearance (Clear) Urine pH (5.0-8.0) Ur Specific Skippers (1.005-1.030) Urine Protein (Negative) Urine Glucose (UA) (Negative) Urine Ketones (Negative) Urine Occult Blood (Negative) Urine Nitrite (Negative) Urine Bilirubin (Negative) Urine Urobilinogen (0.2-1.0) Ur Leukocyte Esterase (Negative) Urine RBC (0-5) /hpf Urine WBC (0-5) /hpf Ur Squamous Epith Cells (0-5) /hpf Calcium Oxalate Crystal (NONE) Urine Bacteria (FEW) /hpf Urine Mucus (FEW) /hpf Salicylates 1.7 L (2.8-20) mg/dL Urine Opiates Screen (IDNRVK=339) Ur Buprenorphine Scrn (CUTOFF=10) Ur Oxycodone Screen (FEP6DC=340) Urine Methadone Screen (KYFXTI=656) Ur Propoxyphene Screen (UZCXGY=836) Acetaminophen (10-30) ug/mL Ur Barbiturates Screen (TESHTO=293) Ur Tricyclics Screen (ECMGIL=254) Ur Phencyclidine Scrn (CUTOFF=25) Ur Amphetamine Screen (LPFYLB=932) U Methamphetamines Scrn (EHORME=141) U Benzodiazepines Scrn (SJMEBU=009) U Cocaine Metab Screen (QMWBNK=090) U Marijuana (THC) Screen (CUTOFF=50) Ethyl Alcohol (0.00) gm% Ketones 0.15 (0.0-0.3) mM Med Orders - Current: Current Medications Folic Acid (Folic Acid) 1 mg PO DAILY [facility] Last Admin: 08/03/18 23:21 Dose: 1 mg Potassium Chloride/Dextrose/Sod Cl (D5 1/2 Ns W/ 20 Meq/L Kcl) 1,000 mls @ 150 mls/hr IV ASDIRECTED [facility] Last Infusion: 08/04/18 00:13 Dose: 150 mls/hr Ondansetron HCl (Zofran Odt) 4 mg PO Q6H PRN PRN Reason: nausea, able to take PO Ondansetron HCl (Zofran) 4 mg IV Q6H PRN PRN Reason: Nausea/Vomiting Discontinued Medications Atropine Sulfate (Atropine) 0.5 mg IVPUSH ONETIME ONE Stop: 08/03/18 19:45 Last Admin: 08/03/18 22:40 Dose: Not Given Atropine Sulfate (Atropine) 0.5 mg IVPUSH ONETIME ONE Stop: 08/03/18 19:48 Last Admin: 08/03/18 19:49 Dose: Not Given Atropine Sulfate (Atropine 0.1 Mg/Ml) Confirm Administered Dose 1 mg .ROUTE .STK -MED ONE Stop: 08/03/18 19:46 Last Admin: 08/03/18 19:49 Dose: 1 mg Atropine Sulfate (Atropine) 0.5 mg IVPUSH ONETIME ONE Stop: 08/04/18 04:35 Sodium Chloride (Normal Saline) 1,000 mls @ 999 mls/hr IV ASDIRECTED [facility] Last Admin: 08/03/18 19:12 Dose: 999 mls/hr Lactated Ringer's (Ringers, Lactated) 1,000 mls @ 999 mls/hr IV .BOLUS ONE Stop: 08/03/18 23:19 Last Admin: 08/03/18 22:50 Dose: 999 mls/hr Naloxone HCl (Narcan) 0.4 mg IVPUSH ONETIME ONE Stop: 08/03/18 19:28 Last Admin: 08/03/18 20:09 Dose: 0.4 mg Thiamine HCl (Vitamin B-1) 100 mg IVPUSH ONETIME ONE Stop: 08/03/18 22:47 Last Admin: 08/03/18 23:21 Dose: 100 mg - Problem List Review Problem List Initiated/Reviewed/Updated: Yes - My Orders Last 24 Hours: My Active Orders 08/03/18 19:04 EKG Documentation Completion [RC] STAT Chest 1V Frontal [CR] Stat 08/03/18 19:05 Blood Glucose Check, Bedside [RC] ONETIME Blood Culture x2 Reflex Set [OM.PC] Stat 08/03/18 19:30 CULTURE BLOOD [BC] Stat 08/03/18 19:50 CULTURE BLOOD [BC] Stat 08/03/18 21:30 D5 1/2 NS w/ 20 mEq/L KCl 1,000 ml IV ASDIRECTED 08/03/18 21:32 Patient Status [ADT] Routine 08/03/18 21:37 Admission Status [Patient Status] [ADT] Routine - Assessment Assessment:: Persistent bradycardia at 40/m and associated hypotension with systolic blood pressure of 80/40. [place] to be secondary to an accidental overdose of muscle relaxants most likely Flexeril or Soma. Suggest repeat trial of atropine 0.5 mg IV at this time to see if it will improve bradycardia and blood pressure. - Plan Plan:: Methamphetamine withdrawal * Patient's severe bradycardia may be secondary to methamphetamine withdrawal. * Her symptoms are not consistent with anticholinergic side effects. She has bradycardia and pinpoint pupils which are exact opposite of what you would expect from an overdose of muscle relaxers. * Polysubstance abuse more likely to be the cause of her current condition. * Monitor overnight in ICU. Follow her blood pressure and pulse closely. Overdose of muscle relaxant * As above * Poison control was consultation and they felt that watchful waiting was the best approach. Bradycardia * Suspect that as she recovers from her methamphetamine withdrawal and any active chemical that she is taking her pulse should improve. Hypotension * Patient was given 1 L IV fluids in the emergency room. * Repeat 1 L lactated Ringer's bolus * Maintain IV fluids at 150 mL after bolus. Chronic medical illnesses to include: Depression, COPD, chronic low back pain Discharge planning will be consultation in the morning. Patient would benefit from drug rehabilitation services.
[2018-08-04] MEDS ORDERED: Atropine 0.1 MG/ML 10 ML Syringe ONE (04:49)
[2018-08-04] MEDS: D5 1/2 NS w/ 20 mEq/L KCl 1,000 ML IV SCH (06:18)
--- NOTE | 2018-08-04 06:22 | CR ---
Chest: Portable view of the chest was obtained. Comparison: No prior chest x-ray, previous chest CT dated 11/30/13. Findings: Nodular density is seen next to the left hilum which is also noted on prior CT exam. This nodule measures about 2.0 cm in size. Lungs are clear with no acute parenchymal change. Heart size is normal for portable technique. Tortuous thoracic aorta is seen. Surgical clips are seen within the left upper and right upper abdomen. Bony structures are grossly intact. Impression: 1. Stable nodule within the left chest next to the left hilum. 2. Other incidental findings. Nothing acute is appreciated on portable chest x-ray. Diagnostic code #2
[2018-08-04] MEDS: Folic Acid 1 MG Tab PO SCH (09:26)
--- NOTE | 2018-08-04 14:03 | PCM.PN ---
- General Info Date of Service: 08/04/18 Admission Dx/Problem (Free Text): Overdose of medication Subjective Update: Patient is morning continues to be tired, but much improved from yesterday. Early this morning Dr. Welch ordered a repeat atropine 0.5 mg IV to increase heart rate and pressure. This worked well and her pulse is been above 60 and blood pressures have been normal. Patient does state that she wants help with drug rehabilitation. Patient does state she has a history of depression. She has been seen by Dr. zurita in the past in psychiatry. She also has a history of attention deficit disorder and has been on Adderall and Ritalin in the past. She 's also been on Lexapro and most recently Zoloft. She has not been taking any of her medications for several days if not longer. Functional Status: Reports: Pain Controlled - Review of Systems General: Reports: No Symptoms HEENT: Reports: No Symptoms Pulmonary: Reports: No Symptoms. Denies: Shortness of Breath Cardiovascular: Reports: No Symptoms. Denies: Chest Pain, Palpitations Gastrointestinal: Reports: No Symptoms. Denies: Abdominal Pain, Diarrhea Psychiatric: Reports: Depression - Patient Data Vitals - Most Recent: Last Vital Signs Temp 99.1 F 08/04/18 12:00 Pulse 80 08/04/18 12:00 Resp 20 08/04/18 12:00 BP 120/71 08/04/18 12:00 Pulse Ox 95 08/04/18 12:00 Weight - Most Recent: 131 lb 8 oz I&O - Last 24 Hours: Intake & Output 08/03/18 08/04/18 08/04/18 22:59 06:59 14:59 Intake Total 1825 440 Output Total 450 700 Balance 1375 -260 Lab Results Last 24 Hours: Laboratory Results - last 24 hr 08/03/18 08/03/18 08/03/18 Range/Units 19:27 19:35 19:37 WBC (3.98-10.04) K/mm3 RBC (3.98-5.22) M/mm3 Hgb (11.2-15.7) gm/L Hct (34.1-44.9) % MCV (79.4-94.8) fl MCH (25.6-32.2) pg MCHC (32.2-35.5) g/dl RDW Std Deviation (36.4-46.3) fL Plt Count (182-369) K/mm3 MPV (9.4-12.3) fl Neut % (Auto) (34.0-71.1) % Lymph % (Auto) (19.3-51.7) % [place] % (Auto) (4.7-12.5) % Eos % (Auto) (0.7-5.8) Baso % (Auto) (0.1-1.2) % Neut # (Auto) (1.56-6.13) K/mm3 Lymph # (Auto) (1.18-3.74) K/mm3 [place] # (Auto) (0.24-0.36) K/mm3 Eos # (Auto) (0.04-0.36) K/mm3 Baso # (Auto) (0.01-0.08) K/mm3 Neutrophils % (Manual) (40-60) % Band Neutrophils % (0-10) % Lymphocytes % (Manual) (20-40) % Atypical Lymphs % % Monocytes % (Manual) (2-10) % Eosinophils % (Manual) (0.7-5.8) % Basophils % (Manual) (0.1-1.2) Platelet Estimate Poikilocytosis Anisocytosis Ovalocytes Sunday Cells RBC Morph Comment ESR (0-20) mm/hr Sodium (136-145) mEq/L Potassium (3.5-5.1) mEq/L Chloride (98-107) mEq/L Carbon Dioxide (21-32) mEq/L Anion Gap (5-15) BUN (7-18) mg/dL Creatinine (0.55-1.02) mg/dL Est Cr Clr Drug Dosing Estimated GFR (MDRD) (>60) mL/min BUN/Creatinine Ratio (14-18) Glucose (74-106) mg/dL POC Glucose 169 H (70-105) mg/dL Serum Osmolality (280-300) mosm/kg Lactic Acid (0.4-2.0) mmol/L Calcium (8.5-10.1) mg/dL Magnesium (1.8-2.4) mg/dl Total Bilirubin (0.2-1.0) mg/dL AST (15-37) U/L ALT (14-59) U/L Alkaline Phosphatase (46-116) U/L Creatine Kinase (26-192) U/L CK-MB (CK-2) (0-3.6) ng/ml Troponin I (0.00-0.056) ng/mL C-Reactive Protein (<1.0) mg/dL NT-Pro-B Natriuret Pep (0-125) pg/mL Total Protein (6.4-8.2) g/dl Albumin (3.4-5.0) g/dl Globulin gm/dL Albumin/Globulin Ratio (1-2) TSH 3rd Generation (0.358-3.74) uIU/mL Urine Color Dark yellow (Yellow) Urine Appearance Slt cloudy H (Clear) Urine pH 6.0 (5.0-8.0) Ur Specific [place] > or = 1.030 (1.005-1.030) Urine Protein 2+ H (Negative) Urine Glucose (UA) Negative (Negative) Urine Ketones 1+ H (Negative) Urine Occult Blood Negative (Negative) Urine Nitrite Negative (Negative) Urine Bilirubin 1+ H (Negative) Urine Urobilinogen 0.2 (0.2-1.0) Ur Leukocyte Esterase Negative (Negative) Urine RBC 0-5 (0-5) /hpf Urine WBC 0-5 (0-5) /hpf Ur Squamous Epith Cells 0-5 (0-5) /hpf Calcium Oxalate Crystal Few H (NONE) Urine Bacteria Few H (FEW) /hpf Urine Mucus Moderate H (FEW) /hpf Salicylates (2.8-20) mg/dL Urine Opiates Screen Negative (OSPRPS=094) Ur Buprenorphine Scrn Negative (CUTOFF=10) Ur Oxycodone Screen Negative (YRH3KE=029) Urine Methadone Screen Negative (LCUDQT=334) Ur Propoxyphene Screen Negative (TWROSP=283) Acetaminophen (10-30) ug/mL Ur Barbiturates Screen Negative (OVDIMJ=287) Ur Tricyclics Screen Negative (WFXNDO=496) Ur Phencyclidine Scrn Negative (CUTOFF=25) Ur Amphetamine Screen Presumptive positive H (MIWROS=065) U Methamphetamines Scrn Presumptive positive H (KJTXHQ=124) U Benzodiazepines Scrn Negative (GXAPXR=200) U Cocaine Metab Screen Negative (BLGAJU=902) U Marijuana (THC) Screen Presumptive positive H (CUTOFF=50) Ethyl Alcohol (0.00) gm% Ketones (0.0-0.3) mM 08/03/18 08/03/18 08/03/18 Range/Units 19:50 19:50 19:50 WBC 7.90 (3.98-10.04) K/mm3 RBC 4.46 (3.98-5.22) M/mm3 Hgb 12.8 (11.2-15.7) gm/L Hct 39.8 (34.1-44.9) % MCV 89.2 (79.4-94.8) fl MCH 28.7 (25.6-32.2) pg MCHC 32.2 (32.2-35.5) g/dl RDW Std Deviation 48.4 H (36.4-46.3) fL Plt Count 221 (182-369) K/mm3 MPV 10.5 (9.4-12.3) fl Neut % (Auto) (34.0-71.1) % Lymph % (Auto) (19.3-51.7) % [place] % (Auto) (4.7-12.5) % Eos % (Auto) (0.7-5.8) Baso % (Auto) (0.1-1.2) % Neut # (Auto) (1.56-6.13) K/mm3 Lymph # (Auto) (1.18-3.74) K/mm3 [place] # (Auto) (0.24-0.36) K/mm3 Eos # (Auto) (0.04-0.36) K/mm3 Baso # (Auto) (0.01-0.08) K/mm3 Neutrophils % (Manual) 73 H (40-60) % Band Neutrophils % 0 (0-10) % Lymphocytes % (Manual) 22 (20-40) % Atypical Lymphs % 0 % Monocytes % (Manual) 3 (2-10) % Eosinophils % (Manual) 2 (0.7-5.8) % Basophils % (Manual) 0 L (0.1-1.2) Platelet Estimate Adequate Poikilocytosis 1+ slight Anisocytosis 1+ slight Ovalocytes 1+ slight [place] Cells Few RBC Morph Comment Not Reportable ESR (0-20) mm/hr Sodium 140 (136-145) mEq/L Potassium 4.2 (3.5-5.1) mEq/L Chloride 110 H (98-107) mEq/L Carbon Dioxide 23 (21-32) mEq/L Anion Gap 11.2 (5-15) BUN 24 H (7-18) mg/dL Creatinine 1.1 H (0.55-1.02) mg/dL Est Cr Clr Drug Dosing TNP Estimated GFR (MDRD) 51 (>60) mL/min BUN/Creatinine Ratio 21.8 H (14-18) Glucose 162 H (74-106) mg/dL POC Glucose (70-105) mg/dL Serum Osmolality (280-300) mosm/kg Lactic Acid 2.3 H (0.4-2.0) mmol/L Calcium 9.5 (8.5-10.1) mg/dL Magnesium 2.2 (1.8-2.4) mg/dl Total Bilirubin 0.4 (0.2-1.0) mg/dL AST 17 (15-37) U/L ALT 42 (14-59) U/L Alkaline Phosphatase 207 H (46-116) U/L Creatine Kinase 35 (26-192) U/L CK-MB (CK-2) 1.0 (0-3.6) ng/ml Troponin I 0.018 (0.00-0.056) ng/mL C-Reactive Protein < 0.2 (<1.0) mg/dL NT-Pro-B Natriuret Pep (0-125) pg/mL Total Protein 5.1 L (6.4-8.2) g/dl Albumin 3.1 L (3.4-5.0) g/dl Globulin 2.0 gm/dL Albumin/Globulin Ratio 1.6 (1-2) TSH 3rd Generation 2.733 (0.358-3.74) uIU/mL Urine Color (Yellow) Urine Appearance (Clear) Urine pH (5.0-8.0) Ur Specific [place] (1.005-1.030) Urine Protein (Negative) Urine Glucose (UA) (Negative) Urine Ketones (Negative) Urine Occult Blood (Negative) Urine Nitrite (Negative) Urine Bilirubin (Negative) Urine Urobilinogen (0.2-1.0) Ur Leukocyte Esterase (Negative) Urine RBC (0-5) /hpf Urine WBC (0-5) /hpf Ur Squamous Epith Cells (0-5) /hpf Calcium Oxalate Crystal (NONE) Urine Bacteria (FEW) /hpf Urine Mucus (FEW) /hpf Salicylates (2.8-20) mg/dL Urine Opiates Screen (FIIGNI=045) Ur Buprenorphine Scrn (CUTOFF=10) Ur Oxycodone Screen (YWB3YX=616) Urine Methadone Screen (YZYTDN=940) Ur Propoxyphene Screen (NIPJQI=602) Acetaminophen (10-30) ug/mL Ur Barbiturates Screen (XYOAHS=707) Ur Tricyclics Screen (PBALEH=424) Ur Phencyclidine Scrn (CUTOFF=25) Ur Amphetamine Screen (EZSYSD=716) U Methamphetamines Scrn (EQRWSN=216) U Benzodiazepines Scrn (MOOBQQ=387) U Cocaine Metab Screen (DYUEPP=740) U Marijuana (THC) Screen (CUTOFF=50) Ethyl Alcohol (0.00) gm% Ketones (0.0-0.3) mM 08/03/18 08/03/18 08/03/18 Range/Units 19:50 19:50 19:50 WBC (3.98-10.04) K/mm3 RBC (3.98-5.22) M/mm3 Hgb (11.2-15.7) gm/L Hct (34.1-44.9) % MCV (79.4-94.8) fl MCH (25.6-32.2) pg MCHC (32.2-35.5) g/dl RDW Std Deviation (36.4-46.3) fL Plt Count (182-369) K/mm3 MPV (9.4-12.3) fl Neut % (Auto) (34.0-71.1) % Lymph % (Auto) (19.3-51.7) % [place] % (Auto) (4.7-12.5) % Eos % (Auto) (0.7-5.8) Baso % (Auto) (0.1-1.2) % Neut # (Auto) (1.56-6.13) K/mm3 Lymph # (Auto) (1.18-3.74) K/mm3 [place] # (Auto) (0.24-0.36) K/mm3 Eos # (Auto) (0.04-0.36) K/mm3 Baso # (Auto) (0.01-0.08) K/mm3 Neutrophils % (Manual) (40-60) % Band Neutrophils % (0-10) % Lymphocytes % (Manual) (20-40) % Atypical Lymphs % % Monocytes % (Manual) (2-10) % Eosinophils % (Manual) (0.7-5.8) % Basophils % (Manual) (0.1-1.2) Platelet Estimate Poikilocytosis Anisocytosis Ovalocytes Sunday Cells RBC Morph Comment ESR 5 (0-20) mm/hr Sodium (136-145) mEq/L Potassium (3.5-5.1) mEq/L Chloride (98-107) mEq/L Carbon Dioxide (21-32) mEq/L Anion Gap (5-15) BUN (7-18) mg/dL Creatinine (0.55-1.02) mg/dL Est Cr Clr Drug Dosing Estimated GFR (MDRD) (>60) mL/min BUN/Creatinine Ratio (14-18) Glucose (74-106) mg/dL POC Glucose (70-105) mg/dL Serum Osmolality 294 (280-300) mosm/kg Lactic Acid (0.4-2.0) mmol/L Calcium (8.5-10.1) mg/dL Magnesium (1.8-2.4) mg/dl Total Bilirubin (0.2-1.0) mg/dL AST (15-37) U/L ALT (14-59) U/L Alkaline Phosphatase (46-116) U/L Creatine Kinase (26-192) U/L CK-MB (CK-2) (0-3.6) ng/ml Troponin I (0.00-0.056) ng/mL C-Reactive Protein (<1.0) mg/dL NT-Pro-B Natriuret Pep 32 (0-125) pg/mL Total Protein (6.4-8.2) g/dl Albumin (3.4-5.0) g/dl Globulin gm/dL Albumin/Globulin Ratio (1-2) TSH 3rd Generation (0.358-3.74) uIU/mL Urine Color (Yellow) Urine Appearance (Clear) Urine pH (5.0-8.0) Ur Specific [place] (1.005-1.030) Urine Protein (Negative) Urine Glucose (UA) (Negative) Urine Ketones (Negative) Urine Occult Blood (Negative) Urine Nitrite (Negative) Urine Bilirubin (Negative) Urine Urobilinogen (0.2-1.0) Ur Leukocyte Esterase (Negative) Urine RBC (0-5) /hpf Urine WBC (0-5) /hpf Ur Squamous Epith Cells (0-5) /hpf Calcium Oxalate Crystal (NONE) Urine Bacteria (FEW) /hpf Urine Mucus (FEW) /hpf Salicylates (2.8-20) mg/dL Urine Opiates Screen (JBADYJ=760) Ur Buprenorphine Scrn (CUTOFF=10) Ur Oxycodone Screen (OAJ7GD=780) Urine Methadone Screen (XGIEDC=094) Ur Propoxyphene Screen (NXSZDP=908) Acetaminophen 2 L (10-30) ug/mL Ur Barbiturates Screen (GKECAL=663) Ur Tricyclics Screen (XXPGJF=441) Ur Phencyclidine Scrn (CUTOFF=25) Ur Amphetamine Screen (OCVTVA=723) U Methamphetamines Scrn (URBYJR=692) U Benzodiazepines Scrn (IHLBCX=597) U Cocaine Metab Screen (MUHHOC=131) U Marijuana (THC) Screen (CUTOFF=50) Ethyl Alcohol 0.00 (0.00) gm% Ketones (0.0-0.3) mM 08/03/18 08/03/18 08/04/18 Range/Units 19:50 19:50 06:14 WBC 5.79 (3.98-10.04) K/mm3 RBC 3.93 L (3.98-5.22) M/mm3 Hgb 11.3 (11.2-15.7) gm/L Hct 35.4 (34.1-44.9) % MCV 90.1 (79.4-94.8) fl MCH 28.8 (25.6-32.2) pg MCHC 31.9 L (32.2-35.5) g/dl RDW Std Deviation 49.1 H (36.4-46.3) fL Plt Count 214 (182-369) K/mm3 MPV 10.7 (9.4-12.3) fl Neut % (Auto) 57.1 (34.0-71.1) % Lymph % (Auto) 28.8 (19.3-51.7) % [place] % (Auto) 10.0 (4.7-12.5) % Eos % (Auto) 3.8 (0.7-5.8) Baso % (Auto) 0.3 (0.1-1.2) % Neut # (Auto) 3.30 (1.56-6.13) K/mm3 Lymph # (Auto) 1.67 (1.18-3.74) K/mm3 [place] # (Auto) 0.58 H (0.24-0.36) K/mm3 Eos # (Auto) 0.22 (0.04-0.36) K/mm3 Baso # (Auto) 0.02 (0.01-0.08) K/mm3 Neutrophils % (Manual) (40-60) % Band Neutrophils % (0-10) % Lymphocytes % (Manual) (20-40) % Atypical Lymphs % % Monocytes % (Manual) (2-10) % Eosinophils % (Manual) (0.7-5.8) % Basophils % (Manual) (0.1-1.2) Platelet Estimate Poikilocytosis Anisocytosis Ovalocytes [place] Cells RBC Morph Comment ESR (0-20) mm/hr Sodium (136-145) mEq/L Potassium (3.5-5.1) mEq/L Chloride (98-107) mEq/L Carbon Dioxide (21-32) mEq/L Anion Gap (5-15) BUN (7-18) mg/dL Creatinine (0.55-1.02) mg/dL Est Cr Clr Drug Dosing Estimated GFR (MDRD) (>60) mL/min BUN/Creatinine Ratio (14-18) Glucose (74-106) mg/dL POC Glucose (70-105) mg/dL Serum Osmolality (280-300) mosm/kg Lactic Acid (0.4-2.0) mmol/L Calcium (8.5-10.1) mg/dL Magnesium (1.8-2.4) mg/dl Total Bilirubin (0.2-1.0) mg/dL AST (15-37) U/L ALT (14-59) U/L Alkaline Phosphatase (46-116) U/L Creatine Kinase (26-192) U/L CK-MB (CK-2) (0-3.6) ng/ml Troponin I (0.00-0.056) ng/mL C-Reactive Protein (<1.0) mg/dL NT-Pro-B Natriuret Pep (0-125) pg/mL Total Protein (6.4-8.2) g/dl Albumin (3.4-5.0) g/dl Globulin gm/dL Albumin/Globulin Ratio (1-2) TSH 3rd Generation (0.358-3.74) uIU/mL Urine Color (Yellow) Urine Appearance (Clear) Urine pH (5.0-8.0) Ur Specific [place] (1.005-1.030) Urine Protein (Negative) Urine Glucose (UA) (Negative) Urine Ketones (Negative) Urine Occult Blood (Negative) Urine Nitrite (Negative) Urine Bilirubin (Negative) Urine Urobilinogen (0.2-1.0) Ur Leukocyte Esterase (Negative) Urine RBC (0-5) /hpf Urine WBC (0-5) /hpf Ur Squamous Epith Cells (0-5) /hpf Calcium Oxalate Crystal (NONE) Urine Bacteria (FEW) /hpf Urine Mucus (FEW) /hpf Salicylates 1.7 L (2.8-20) mg/dL Urine Opiates Screen (DDHKLC=933) Ur Buprenorphine Scrn (CUTOFF=10) Ur Oxycodone Screen (BQB3SM=479) Urine Methadone Screen (HFPTJW=524) Ur Propoxyphene Screen (JOLYLV=094) Acetaminophen (10-30) ug/mL Ur Barbiturates Screen (WNEEYC=516) Ur Tricyclics Screen (QPGQDP=288) Ur Phencyclidine Scrn (CUTOFF=25) Ur Amphetamine Screen (SRXOWG=046) U Methamphetamines Scrn (EYMFRW=084) U Benzodiazepines Scrn (EDHCDR=129) U Cocaine Metab Screen (AVHWDU=702) U Marijuana (THC) Screen (CUTOFF=50) Ethyl Alcohol (0.00) gm% Ketones 0.15 (0.0-0.3) mM 08/04/18 08/04/18 Range/Units 06:14 06:14 WBC (3.98-10.04) K/mm3 RBC (3.98-5.22) M/mm3 Hgb (11.2-15.7) gm/L Hct (34.1-44.9) % MCV (79.4-94.8) fl MCH (25.6-32.2) pg MCHC (32.2-35.5) g/dl RDW Std Deviation (36.4-46.3) fL Plt Count (182-369) K/mm3 MPV (9.4-12.3) fl Neut % (Auto) (34.0-71.1) % Lymph % (Auto) (19.3-51.7) % [place] % (Auto) (4.7-12.5) % Eos % (Auto) (0.7-5.8) Baso % (Auto) (0.1-1.2) % Neut # (Auto) (1.56-6.13) K/mm3 Lymph # (Auto) (1.18-3.74) K/mm3 [place] # (Auto) (0.24-0.36) K/mm3 Eos # (Auto) (0.04-0.36) K/mm3 Baso # (Auto) (0.01-0.08) K/mm3 Neutrophils % (Manual) (40-60) % Band Neutrophils % (0-10) % Lymphocytes % (Manual) (20-40) % Atypical Lymphs % % Monocytes % (Manual) (2-10) % Eosinophils % (Manual) (0.7-5.8) % Basophils % (Manual) (0.1-1.2) Platelet Estimate Poikilocytosis Anisocytosis Ovalocytes [place] Cells RBC Morph Comment ESR 3 (0-20) mm/hr Sodium 141 (136-145) mEq/L Potassium 3.8 (3.5-5.1) mEq/L Chloride 113 H (98-107) mEq/L Carbon Dioxide 20 L (21-32) mEq/L Anion Gap 11.8 (5-15) BUN 19 H (7-18) mg/dL Creatinine 0.6 (0.55-1.02) mg/dL Est Cr Clr Drug Dosing 90.84 Estimated GFR (MDRD) > 60 (>60) mL/min BUN/Creatinine Ratio 31.7 H (14-18) Glucose 88 (74-106) mg/dL POC Glucose (70-105) mg/dL Serum Osmolality (280-300) mosm/kg Lactic Acid (0.4-2.0) mmol/L Calcium 8.9 (8.5-10.1) mg/dL Magnesium (1.8-2.4) mg/dl Total Bilirubin 0.3 (0.2-1.0) mg/dL AST 17 (15-37) U/L ALT 39 (14-59) U/L Alkaline Phosphatase 197 H (46-116) U/L Creatine Kinase 22 L (26-192) U/L CK-MB (CK-2) (0-3.6) ng/ml Troponin I < 0.017 (0.00-0.056) ng/mL C-Reactive Protein < 0.2 (<1.0) mg/dL NT-Pro-B Natriuret Pep (0-125) pg/mL Total Protein 4.8 L (6.4-8.2) g/dl Albumin 2.8 L (3.4-5.0) g/dl Globulin 2.0 gm/dL Albumin/Globulin Ratio 1.4 (1-2) TSH 3rd Generation (0.358-3.74) uIU/mL Urine Color (Yellow) Urine Appearance (Clear) Urine pH (5.0-8.0) Ur Specific [place] (1.005-1.030) Urine Protein (Negative) Urine Glucose (UA) (Negative) Urine Ketones (Negative) Urine Occult Blood (Negative) Urine Nitrite (Negative) Urine Bilirubin (Negative) Urine Urobilinogen (0.2-1.0) Ur Leukocyte Esterase (Negative) Urine RBC (0-5) /hpf Urine WBC (0-5) /hpf Ur Squamous Epith Cells (0-5) /hpf Calcium Oxalate Crystal (NONE) Urine Bacteria (FEW) /hpf Urine Mucus (FEW) /hpf Salicylates (2.8-20) mg/dL Urine Opiates Screen (KLVFJK=299) Ur Buprenorphine Scrn (CUTOFF=10) Ur Oxycodone Screen (FRB5MG=166) Urine Methadone Screen (HYJJST=043) Ur Propoxyphene Screen (RCWNVT=103) Acetaminophen (10-30) ug/mL Ur Barbiturates Screen (SIRTQH=196) Ur Tricyclics Screen (SAOQUQ=539) Ur Phencyclidine Scrn (CUTOFF=25) Ur Amphetamine Screen (NWKPFW=621) U Methamphetamines Scrn (HXUTVU=028) U Benzodiazepines Scrn (OTFSNB=711) U Cocaine Metab Screen (ONWGUR=022) U Marijuana (THC) Screen (CUTOFF=50) Ethyl Alcohol (0.00) gm% Ketones (0.0-0.3) mM Med Orders - Current: Current Medications Folic Acid (Folic Acid) 1 mg PO DAILY [facility] Last Admin: 08/04/18 09:26 Dose: 1 mg Potassium Chloride/Dextrose/Sod Cl (D5 1/2 Ns W/ 20 Meq/L Kcl) 1,000 mls @ 150 [facility] Admin: 08/04/18 06:18 Dose: 150 mls/hr Ondansetron HCl (Zofran Odt) 4 mg PO Q6H PRN PRN Reason: nausea, able to take PO Ondansetron HCl (Zofran) 4 mg IV Q6H PRN PRN Reason: Nausea/Vomiting Discontinued Medications Atropine Sulfate (Atropine) 0.5 mg IVPUSH ONETIME ONE Stop: 08/03/18 19:45 Last Admin: 08/03/18 22:40 Dose: Not Given Atropine Sulfate (Atropine) 0.5 mg IVPUSH ONETIME ONE Stop: 08/03/18 19:48 Last Admin: 08/03/18 19:49 Dose: Not Given Atropine Sulfate (Atropine 0.1 Mg/Ml) Confirm Administered Dose 1 mg .ROUTE .STK -MED ONE Stop: 08/03/18 19:46 Last Admin: 08/03/18 19:49 Dose: 1 mg Atropine Sulfate (Atropine) 0.5 mg IVPUSH ONETIME ONE Stop: 08/04/18 04:35 Last Admin: 08/04/18 04:59 Dose: 0.5 mg Atropine Sulfate (Atropine 0.1 Mg/Ml) Confirm Administered Dose 1 mg .ROUTE .STK -MED ONE Stop: 08/04/18 04:50 Last Admin: 08/04/18 04:59 Dose: Not Given Sodium Chloride (Normal Saline) 1,000 mls @ 999 mls/hr IV ASDIRECTED [facility] Last Admin: 08/03/18 19:12 Dose: 999 mls/hr Lactated Ringer's (Ringers, Lactated) 1,000 mls @ 999 mls/hr IV .BOLUS ONE Stop: 08/03/18 23:19 Last Admin: 08/03/18 22:50 Dose: 999 mls/hr Naloxone HCl (Narcan) 0.4 mg IVPUSH ONETIME ONE Stop: 08/03/18 19:28 Last Admin: 08/03/18 20:09 Dose: 0.4 mg Thiamine HCl (Vitamin B-1) 100 mg IVPUSH ONETIME ONE Stop: 08/03/18 22:47 Last Admin: 08/03/18 23:21 Dose: 100 mg - Exam General: Alert, Oriented, Sedated HEENT: Pupils Equal, Pupils Reactive Neck: Supple Lungs: Clear to Auscultation, Normal Respiratory Effort Cardiovascular: Regular Rate, Regular Rhythm GI/Abdominal Exam: Normal Bowel Sounds, Soft, Non-Tender, No Distention Extremities: Normal Inspection, Normal Range of Motion, No Pedal Edema, Normal Capillary Refill Skin: Warm, Dry, Intact Psy/Mental Status: Alert, Depressed - Problem List & Annotations (1) Bradycardia SNOMED Code(s): 73109154 Code(s): R00.1 - BRADYCARDIA, UNSPECIFIED Status: Acute Current Visit: Yes (2) Hypotension SNOMED Code(s): 06252312 Code(s): I95.9 - HYPOTENSION, UNSPECIFIED Status: Acute Current Visit: Yes (3) Hypothermia due to non-environmental cause SNOMED Code(s): 924437657 Code(s): R68.0 - HYPOTHERMIA, NOT ASSOCIATED W LOW ENVIRONMENTAL TEMPERATURE Status: Acute Current Visit: Yes (4) Methamphetamine use SNOMED Code(s): 763530303 Code(s): F15.10 - OTHER STIMULANT ABUSE, UNCOMPLICATED Status: Acute Current Visit: Yes (5) Overdose of medication SNOMED Code(s): 42144671 Code(s): T50.901A - POISONING BY UNSP DRUG/MEDS/BIOL SUBST, ACCIDENTAL, INIT Status: Acute Current Visit: Yes Qualifiers: Encounter type: initial encounter Injury intent: accidental or unintentional Qualified Code(s): T50.901A - Poisoning by unspecified drugs, medicaments and biological substances, accidental (unintentional), initial encounter - Problem List Review Problem List Initiated/Reviewed/Updated: Yes - My Orders Last 24 Hours: My Active Orders 08/03/18 22:59 Bedrest Bathroom Privileges [RC] ASDIRECTED Height and Weight [RC] 04 Consult to Case Management/[employer] [CONS] Routine Ondansetron [Zofran ODT] 4 mg PO Q6H PRN Ondansetron [Zofran] 4 mg IV Q6H PRN Resuscitation Status Routine 08/03/18 23:00 Oxygen Therapy [RC] PRN VTE/DVT Education [RC] BID Vital Signs [RC] Q4HR Folic Acid 1 mg PO DAILY 08/03/18 23:01 Intake and Output [RC] 08/04/18 11:27 Consult for Substance Abuse [CONS] Routine Consult to Physician [CONS] Routine 08/04/18 11:28 Notify Provider Consults [RC] ASDIRECTED 08/04/18 Lunch Regular Diet [DIET] - Assessment Assessment:: Persistent bradycardia at 40/m and associated hypotension with systolic blood pressure of 80/40. [place] to be secondary to an accidental overdose of muscle relaxants most likely Flexeril or Soma. Suggest repeat trial of atropine 0.5 mg IV at this time to see if it will improve bradycardia and blood pressure. - Plan Plan:: Methamphetamine withdrawal * Patient's severe bradycardia may be secondary to methamphetamine withdrawal. Now resolved * Her symptoms are not consistent with anticholinergic side effects. She has bradycardia and pinpoint pupils which are exact opposite of what you would expect from an overdose of muscle relaxers. * Polysubstance abuse more likely to be the cause of her current condition. Consult psychiatry and substance abuse counselor * Monitor overnight in ICU. Follow her blood pressure and pulse closely. Overdose of muscle relaxant * As above * Poison control was consultation and they felt that watchful waiting was the best approach. They have signed off the case. Bradycardia * Suspect that as she recovers from her methamphetamine withdrawal and any active chemical that she is taking her pulse should improve. Hypotension * Resolved following fluid boluses and atropine 0.5 mg IV Depression * She would benefit from restarting her antidepressant medication. I am going to request that Dr. Paz give us guidance before restarting medications. Chronic medical illnesses to include: COPD, chronic low back pain Length of stay will be dependent on plan for rehabilitation. CODE STATUS: Full
[2018-08-04] MEDS: Citalopram 20 MG Tab PO SCH (15:00)
[2018-08-04] MEDS: ClonazePAM 1 MG Tab PO PRN (21:07)
--- NOTE | 2018-08-04 22:04 | CONS ---
CONSULTING PHYSICIAN: Jack Paz MD DATE OF CONSULTATION: 08/04/2018 Site where the services are provided are [facility] in [place], [place]. Site where the services are provided are from our offices in [place], [place]. Length of time for this 60-minute inpatient telemedicine event is 60 minutes. IDENTIFICATION: The patient is a 58-year-old female who is admitted to the inpatient MICU at [facility] in [place], [place] on 08/03/2017. She is seen for psychiatric consultation per the request of staff attending, Dr. Quinn and his treatment team. CHIEF COMPLAINT: "I took some pills. I did not think it was enough to kill me. I was trying to get my boyfriend's attention." HISTORY OF PRESENT ILLNESS: The patient is a 58-year-old female who reports that she has been "fighting withdrawals, trying to get off meth" and last used 5 days ago. She states that her boyfriend whom she is having relationship difficulties with is also trying to get sober, and they were having a fight and so she took some pills and overdosed. She denies that she was suicidal. She denies that she is suicidal now. She also denies that she is homicidal. She does admit to using meth quite heavily over the past year as well as marijuana, and she also states "I suffer from chronic depression." She goes on to note "I am massively depressed." She states that she used to take a combination of Wellbutrin and Lexapro and that seemed to work well enough for her. In fact, she was staying sober, but then she ran out of the medications and wanted to get a psychiatric evaluation in the town of [place], and the psychiatrist she saw there "switch me out and took me off my meds and put me on some other ones." She states that these medications were not as affective as her previous psychiatric medication and she started feeling more depressed and she states "I just ran out of medicine and I started getting high again." She states that she is "just sad" at this point in time and she is wanting to get back on her Wellbutrin and Lexapro to see if that will help improve her mood. She does state that the main issue also is her addiction, that if she gets sober that would help quite a bit, but she does feel that she has depression in addition to her chemical addictions. The patient denies any psychotic, delusional, or paranoid symptoms. Again, she is stating she is "just sad" at this point in time, but is fernanda for safety while on the unit and denying any suicidal ideation. MEDICATIONS: At admission, none. ALLERGIES: 1. Clindamycin. 2. Latex. PAST MEDICAL HISTORY: According to chart review; 1. COPD. 2. Anemia. 3. Arthritis. 4. Past history of hypothyroidism, but reports it was resolved. REVIEW OF SYSTEMS: Aside from pulmonary, blood, musculoskeletal, all other major organ systems are negative at this point in time for acute difficulties or complications. FAMILY PSYCHIATRIC AND CD HISTORY: Patient reports she has siblings who are primarily addicted to alcoholism and 1 sister who had CD issues like herself. PAST PSYCHIATRIC AND CD HISTORY: The patient denies any previous psychiatric hospitalization. Does report some outpatient chemical dependency treatment classes that she attended. Denies any previous suicide attempts or self-injurious behavior. She states her longest sobriety was for 12 years until about a year ago. Past psychiatric diagnoses include anxiety and depression as well as ADD. Past psychiatric medication history includes Wellbutrin, Lexapro, Zoloft, Adderall, and Ritalin. Primary outpatient psychiatrist is Dr. Metcalf at the [facility] in [place], [place]. SOCIAL HISTORY: The patient was born in [place] and raised in [place] in the [facility]. She is a 7th of 7 siblings having 4 brothers and 2 sisters. The patient's biological parents were never . Her highest level of education is high school diploma. She is currently unemployed. Lives with her boyfriend in [place], [place]. Denies any prior service or any current legal difficulties. She is Catholic in terms of her catina formation. She does have children, but she states "they are all grown now." She enjoys sewing, art work and drawing in her spare time. MENTAL STATUS EXAM: The patient is a 58-year-old white female, in no apparent distress. Speech is of regular rate and rhythm. The patient is cognitively oriented. Psychomotor activity is within normal limits. There is no abnormal motor movements or tics observed. Gait and station are not observed. Actually, this patient is in bed at the time of interview, so gait and station are not observed. This patient is in bed at the time of interview. Mood is depressed. Affect is consistent with stated mood, restricted and tearful but cooperative overall for the purposes of the inpatient psychiatric consult. There is no behavioral or stated evidence of acute suicidal or homicidal ideation or acute psychotic, delusional, or paranoid symptoms. Thought processes are slow but organized overall. There are no acute manic symptoms, loose associations evident. Judgment and insight appear somewhat impaired into the severity of her depression and addiction, but motivation for help appears good. VITAL SIGNS: 120/79, 60, 14, and 98.2. IMPRESSION: Brewton I: 1. Major depressive disorder, recurrent, F33.3. 2. Anxiety disorder, not otherwise specified, F41.9. 3. Methamphetamine dependence. 4. Cannabis abuse versus dependence. Brewton II: None. Brewton III: 1. Chronic obstructive pulmonary disease. 2. Anemia history. 3. History of arthritis. 4. Past history of hypothyroidism, but resolved per chart review. Brewton IV: Severe. Brewton V: 55-60. PLAN: 1. Sobriety. 2. AA rep to visit the patient. 3. Pastoral guidance while the patient remains on unit. 4. CD consult. 5. Folic acid supplementation. 6. Thiamine supplementation. 7. Recommend beginning Lexapro 20 mg q.a.m. to help with symptoms of depression. 8. Recommend beginning Wellbutrin XL 300 mg q.a.m. also to help with symptoms of depression. 9. Recommend that the patient be transferred to inpatient psychiatry when she is medically stabilized for further psychiatric medication stabilization as the severity of her depressive symptoms seems quite high at this point in time and she would benefit from inpatient treatment going forward for the time being. 10.Also recommend that when the patient is psychiatrically stabilized that she is transferred to CD treatment to help her with her addiction issues that she has been struggling with prior to admission. 11.We will continue follow up with the patient on an as-needed basis while she remains on the inpatient MICU. 12.We will follow up with the patient sooner if any complications in the interim. 13.Recommend the patient to follow up with outpatient psychiatry once she is discharged back to community after her psychiatric hospitalization and treatment to ensure that her treatment plan efficacy of her psychiatric medication regimen remains good while she is transitioning back to the community. 14.Crisis plan is in place. MMODAL /[id number]
[2018-08-05] MEDS: Folic Acid 1 MG Tab PO SCH (08:38)
[2018-08-05] MEDS: buPROPion 150 MG Tab.ER PO SCH (08:39)
[2018-08-05] MEDS: Citalopram 20 MG Tab PO SCH (08:39)
--- NOTE | 2018-08-05 12:25 | PCM.PN ---
- General Info Date of Service: 08/05/18 Admission Dx/Problem (Free Text): Overdose of medication Subjective Update: August 05, 2018 Patient had an uneventful night. She did complain of some restless leg, but she received her home dose of Klonopin and rested comfortably. She does have a significant amount of hunger, likely due to methamphetamine withdrawal. Patient will be seen by Jose Daniel eid licensed addiction counselor. August 04, 2018 Patient is morning continues to be tired, but much improved from yesterday. Early this morning Dr. Welch ordered a repeat atropine 0.5 mg IV to increase heart rate and pressure. This worked well and her pulse is been above 60 and blood pressures have been normal. Patient does state that she wants help with drug rehabilitation. Patient does state she has a history of depression. She has been seen by Dr. zurita in the past in psychiatry. She also has a history of attention deficit disorder and has been on Adderall and Ritalin in the past. She 's also been on Lexapro and most recently Zoloft. She has not been taking any of her medications for several days if not longer. - Review of Systems General: Reports: Fatigue HEENT: Reports: No Symptoms Pulmonary: Reports: No Symptoms Cardiovascular: Reports: No Symptoms. Denies: Chest Pain, Palpitations Gastrointestinal: Reports: No Symptoms Genitourinary: Reports: No Symptoms Musculoskeletal: Reports: No Symptoms Neurological: Reports: No Symptoms. Denies: Confusion, Dizziness - Patient Data Vitals - Most Recent: Last Vital Signs Temp 97.4 F 08/05/18 08:00 Pulse 68 08/05/18 08:00 Resp 16 08/05/18 08:00 BP 138/85 08/05/18 08:00 Pulse Ox 95 08/05/18 08:00 Weight - Most Recent: 134 lb 8 oz I&O - Last 24 Hours: Intake & Output 08/04/18 08/05/18 08/05/18 22:59 06:59 14:59 Intake Total 2019 2240 320 Balance 2019 2240 320 Emmett Results Last 24 Hours: Microbiology 08/03/18 19:50 Aerobic Blood Culture - Preliminary Blood - Venous NO GROWTH AFTER 1 DAY Anaerobic Blood Culture - Preliminary NO GROWTH AFTER 1 DAY 08/03/18 19:30 Aerobic Blood Culture - Preliminary Blood - Venous - Lab Draw NO GROWTH AFTER 1 DAY Anaerobic Blood Culture - Preliminary NO GROWTH AFTER 1 DAY Med Orders - Current: Current Medications Bupropion HCl (Wellbutrin Xl) [address] [facility] Last Admin: 08/05/18 08:39 Dose: 300 mg Citalopram Hydrobromide (Celexa) [address] [facility] Last Admin: 08/05/18 08:39 Dose: 40 mg Clonazepam (Klonopin) 1 mg PO Q6H PRN PRN Reason: Anxiety Last Admin: 08/04/18 21:07 Dose: 1 mg Folic Acid (Folic Acid) [address] [facility] Last Admin: 08/05/18 08:38 Dose: 1 mg Potassium Chloride/Dextrose/Sod Cl (D5 1/2 Ns W/ 20 Meq/L Kcl) 1,000 mls @ 150 mls/hr IV ASDIRECTED [facility] Last Admin: 08/04/18 06:18 Dose: 150 mls/hr Ondansetron HCl (Zofran Odt) 4 mg PO Q6H PRN PRN Reason: nausea, able to take PO Ondansetron HCl (Zofran) 4 mg IV Q6H PRN PRN Reason: Nausea/Vomiting Discontinued Medications Atropine Sulfate (Atropine) 0.5 mg IVPUSH ONETIME ONE Stop: 08/03/18 19:45 Last Admin: 08/03/18 22:40 Dose: Not Given Atropine Sulfate (Atropine) 0.5 mg IVPUSH ONETIME ONE Stop: 08/03/18 19:48 Last Admin: 08/03/18 19:49 Dose: Not Given Atropine Sulfate (Atropine 0.1 Mg/Ml) Confirm Administered Dose 1 mg .ROUTE .STK -[facility] ONE Stop: 08/03/18 19:46 Last Admin: 08/03/18 19:49 Dose: 1 mg Atropine Sulfate (Atropine) 0.5 mg IVPUSH ONETIME ONE Stop: 08/04/18 04:35 Last Admin: 08/04/18 04:59 Dose: 0.5 mg Atropine Sulfate (Atropine 0.1 Mg/Ml) Confirm Administered Dose 1 mg .ROUTE .STK -MED ONE Stop: 08/04/18 04:50 Last Admin: 08/04/18 04:59 Dose: Not Given Sodium Chloride (Normal Saline) 1,000 mls @ 999 mls/hr IV ASDIRECTED [facility] Last Admin: 08/03/18 19:12 Dose: 999 mls/hr Lactated Ringer's (Ringers, Lactated) 1,000 mls @ 999 mls/hr IV .BOLUS ONE Stop: 08/03/18 23:19 Last Admin: 08/03/18 22:50 Dose: 999 mls/hr Naloxone HCl (Narcan) 0.4 mg IVPUSH ONETIME ONE Stop: 08/03/18 19:28 Last Admin: 08/03/18 20:09 Dose: 0.4 mg Thiamine HCl (Vitamin B-1) 100 mg IVPUSH ONETIME ONE Stop: 08/03/18 22:47 Last Admin: 08/03/18 23:21 Dose: 100 mg - Exam General: Alert, Oriented HEENT: Pupils Equal, Pupils Reactive Neck: Supple Lungs: Clear to Auscultation, Normal Respiratory Effort Cardiovascular: Regular Rate, Regular Rhythm GI/Abdominal Exam: Normal Bowel Sounds, Soft, Non-Tender Skin: Warm, Dry, Intact - Problem List & Annotations (1) Bradycardia SNOMED Code(s): 10805700 Code(s): R00.1 - BRADYCARDIA, UNSPECIFIED Status: Acute Current Visit: Yes (2) Hypotension SNOMED Code(s): 44859911 Code(s): I95.9 - HYPOTENSION, UNSPECIFIED Status: Acute Current Visit: Yes (3) Hypothermia due to non-environmental cause SNOMED Code(s): 225061417 Code(s): R68.0 - HYPOTHERMIA, NOT ASSOCIATED W LOW ENVIRONMENTAL TEMPERATURE Status: Acute Current Visit: Yes (4) Methamphetamine use SNOMED Code(s): 352697436 Code(s): F15.10 - OTHER STIMULANT ABUSE, UNCOMPLICATED Status: Acute Current Visit: Yes (5) Overdose of medication SNOMED Code(s): 94850625 Code(s): T50.901A - POISONING BY UNSP DRUG/MEDS/BIOL SUBST, ACCIDENTAL, INIT Status: Acute Current Visit: Yes Qualifiers: Encounter type: initial encounter Injury intent: accidental or unintentional Qualified Code(s): T50.901A - Poisoning by unspecified drugs, medicaments and biological substances, accidental (unintentional), initial encounter - Problem List Review Problem List Initiated/Reviewed/Updated: Yes - My Orders Last 24 Hours: My Active Orders 08/04/18 11:27 Consult for Substance Abuse [CONS] Routine Consult to Physician [CONS] Routine 08/04/18 11:28 Notify Provider Consults [RC] ASDIRECTED 08/04/18 17:18 Patient Status [ADT] Routine 08/04/18 17:19 ClonazePAM [KlonoPIN] 1 mg PO Q6H PRN - Assessment Assessment:: Persistent bradycardia at 40/m and associated hypotension with systolic blood pressure of 80/40. Nocatee to be secondary to an accidental overdose of muscle relaxants most likely Flexeril or Soma. Suggest repeat trial of atropine 0.5 mg IV at this time to see if it will improve bradycardia and blood pressure. - Plan Plan:: Methamphetamine withdrawal * Patient's severe bradycardia may be secondary to methamphetamine withdrawal. Now resolved * Her symptoms are not consistent with anticholinergic side effects. She had bradycardia and pinpoint pupils which are exact opposite of what you would expect from an overdose of muscle relaxers. * Polysubstance abuse more likely to be the cause of her current condition. Consult psychiatry and substance abuse counselor * Transfer to [facility] with telemetry Overdose of muscle relaxant * As above * Poison control was consultation and they felt that watchful waiting was the best approach. They have signed off the case. Bradycardia-resolved * Suspect that as she recovers from her methamphetamine withdrawal and any active chemical that she is taking her pulse should improve. Hypotension-resolved * Continue to monitor Depression * Managed per Dr. Paz in psychiatry Chronic medical illnesses to include: COPD, chronic low back pain Length of stay will be dependent on plan for rehabilitation. CODE STATUS: Full
[2018-08-05] MEDS: ClonazePAM 1 MG Tab PO PRN (22:06)
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
[2018-08-06 09:40] VITALS: BP 129/76
[2018-08-06] MEDS: Citalopram 20 MG Tab PO SCH (09:45)
[2018-08-06] MEDS: buPROPion 150 MG Tab.ER PO SCH (09:45)
[2018-08-06] MEDS: Folic Acid 1 MG Tab PO SCH (09:45)
--- NOTE | 2018-08-06 11:30 | PCM.DCSUM1 ---
Discharge Summary - Hospital Course HPI Initial Comments: 58-year-old female was brought in by the police when they found her in her car went and cold. Patient states that her and her boyfriend been using methamphetamines and marijuana for the last several weeks. She states she has been smoking 2 bowls of meth per day. They have been clean for 3 days and she's had difficulty with withdrawal, so she took a handful of what she thinks were generic Flexeril. Patient states that she took this at 1730. She also states that previous to taking the medication she showered and had a wet hair which is why the police found her with wet hair. Apparently her and her boyfriend argued , she had another friend drive her to the hospital, he became concerned after she told more of his story, he left her in her car and she waved down a mounted police. When she did arrive to the emergency room her temperature was 92.3 rectally. Please see the emergency room note for further details. In the emergency room she was only a little confused and is disoriented to place and time. She is now confused but does know place. Blood pressure in the emergency room was 79/56 with a pulse rate of only 36. They gave her atropine with minimal benefit, but a bolus of fluid did increase her blood pressure above the mean arterial pressure of 65. Nursing did fine 1 Zoloft pill in her hair. It was felt to admit the patient to the ICU for further evaluation. Poison control was contacted and they felt that if she did have an overdose of Flexeril should be more likely to be tachycardic then bradycardic. They stated that Flexeril and other muscle relaxers are more anticholinergic in their side effects. They did state that she may have some low blood pressure because of withdrawal from methamphetamines. She denies regular alcohol use. She states she only drinks a couple times a year. She denies any chest pain, orthopnea, PND , lower extremity edema, shortness of breath, or cough. She has past medical history of depression and she has Zoloft prescribed. Brief History: Patient had an uneventful hospital course. Over the first 12-16 hours. Blood pressure did come back up to normal and her pulse has been in the 60s to 80s. Appetite has returned and she has had [facility] addiction counseling and psychiatric appointments. Both recommended inpatient treatment. Diagnosis: Stroke: No - Discharge Data Discharge Date: 08/06/18 Discharge Disposition: DC/Tfer to [facility] H[facility]Unit [facility] Condition: Good - Discharge Diagnosis/Problem(s) (1) Bradycardia SNOMED Code(s): 33317605 ICD Code: R00.1 - BRADYCARDIA, UNSPECIFIED Status: Acute Current Visit: Yes (2) Hypotension SNOMED Code(s): 05893587 ICD Code: I95.9 - HYPOTENSION, UNSPECIFIED Status: Acute Current Visit: Yes (3) Hypothermia due to non-environmental cause SNOMED Code(s): 713148200 ICD Code: R68.0 - HYPOTHERMIA, NOT ASSOCIATED W LOW ENVIRONMENTAL TEMPERATURE Status: Acute Current Visit: Yes (4) Methamphetamine use SNOMED Code(s): 629839712 ICD Code: F15.10 - OTHER STIMULANT ABUSE, UNCOMPLICATED Status: Acute Current Visit: Yes (5) Overdose of medication SNOMED Code(s): 64576849 ICD Code: T50.901A - POISONING BY UNSP DRUG/MEDS/BIOL SUBST, ACCIDENTAL, INIT Status: Acute Current Visit: Yes Qualifiers: Encounter type: initial encounter Injury intent: accidental or unintentional Qualified Code(s): T50.901A - Poisoning by unspecified drugs, medicaments and biological substances, accidental (unintentional), initial encounter - Patient Summary/Data Consults: Consultations 08/03/18 22:59 Consult to Case Management/Health Sciences Manager [CONS] Routine 08/04/18 11:27 Consult for Substance Abuse [CONS] Routine Consult to Physician [CONS] Routine 08/04/18 15:20 Consult to Spiritual Care [CONS] Routine - Patient Instructions Diet: Usual Diet as Tolerated Activity: As Tolerated Driving: Do Not Drive Showering/Bathing: May Shower - Discharge Plan *PRESCRIPTION DRUG MONITORING PROGRAM REVIEWED*: Not Applicable *COPY OF PRESCRIPTION DRUG MONITORING REPORT IN PATIENT MALIA: Not Applicable Home Medications: Home Meds Escitalopram [Lexapro] 20 mg PO DAILY 08/04/18 [History] Meloxicam 15 mg PO DAILY 08/04/18 [History] clonazePAM [Klonopin] 1 mg PO Q6H PRN 08/04/18 [History] Folic Acid 1 mg PO DAILY tablet 08/06/18 [Rx] buPROPion [buPROPion XL] 300 mg PO DAILY tab.er 08/06/18 [Rx] Oxygen Therapy Mode: Room Air Patient Handouts: Accidental Overdose, Chemical Dependency, Recovering From Addiction Forms: ED Department Discharge Referrals: PCP,None [Primary Care Provider] - - Discharge Summary/Plan Comment DC Time >30 min.: Yes Discharge Summary/Plan Comment: Methamphetamine withdrawal * Patient's severe bradycardia resolved * Polysubstance abuse more likely the cause of her presenting illness. Consult psychiatry and substance abuse counselor recommended inpatient treatment * Transfer to [facility] for inpatient treatment Overdose of muscle relaxant * As above * Poison control was consultation and they felt that watchful waiting was the best approach. They have signed off the case. Bradycardia-resolved * Suspect that as she recovers from her methamphetamine withdrawal and any active chemical that she is taking her pulse should improve. Hypotension-resolved * Continue to monitor Depression * Managed per Dr. Paz in psychiatry Chronic medical illnesses to include: COPD, chronic low back pain - General Info Date of Service: 08/06/18 Admission Dx/Problem (Free Text: Overdose of medication Subjective Update: August 06, 2018 Patient had another uneventful night. She was seen by a licensed addiction counselor and it was felt that she should get 3.7 level treatment. Patient was resting comfortably today with no complaints. August 05, 2018 Patient had an uneventful night. She did complain of some restless leg, but she received her home dose of Klonopin and rested comfortably. She does have a significant amount of hunger, likely due to methamphetamine withdrawal. Patient will be seen by Jose Daniel eid licensed addiction counselor. August 04, 2018 Patient is morning continues to be tired, but much improved from yesterday. Early this morning Dr. Welch ordered a repeat atropine 0.5 mg IV to increase heart rate and pressure. This worked well and her pulse is been above 60 and blood pressures have been normal. Patient does state that she wants help with drug rehabilitation. Patient does state she has a history of depression. She has been seen by Dr. zurita in the past in psychiatry. She also has a history of attention deficit disorder and has been on Adderall and Ritalin in the past. She 's also been on Lexapro and most recently Zoloft. She has not been taking any of her medications for several days if not longer. Functional Status: Reports: Pain Controlled, Tolerating Diet, Ambulating, Urinating - Review of Systems General: Reports: No Symptoms. Denies: Fever, Weakness HEENT: Reports: No Symptoms. Denies: Sinus Congestion, Sore Throat, Visual Changes Pulmonary: Reports: No Symptoms. Denies: Shortness of Breath, Cough Cardiovascular: Reports: No Symptoms. Denies: Chest Pain, Palpitations Gastrointestinal: Reports: No Symptoms. Denies: Abdominal Pain, Constipation, Difficulty Swallowing Genitourinary: Reports: No Symptoms. Denies: Dysuria, Frequency, Burning Neurological: Reports: No Symptoms. Denies: Confusion, Dizziness, Headache, Numbness Psychiatric: Reports: No Symptoms. Denies: Confusion - Patient Data Vitals - Most Recent: Last Vital Signs Temp 97.1 F 08/06/18 08:00 Pulse 65 08/06/18 08:00 Resp 18 08/06/18 08:00 BP 129/76 08/06/18 08:00 Pulse Ox 94 L 08/06/18 08:00 Weight - Most Recent: 131 lb 3.2 oz I&O - Last 24 hours: Intake & Output 08/05/18 08/06/18 08/06/18 22:59 06:59 14:59 Intake Total 1340 1000 Balance 1340 1000 AJ Results - Last 24 hrs: Microbiology 08/03/18 19:50 Aerobic Blood Culture - Preliminary Blood - Venous NO GROWTH AFTER 2 DAYS Anaerobic Blood Culture - Preliminary NO GROWTH AFTER 2 DAYS 08/03/18 19:30 Aerobic Blood Culture - Preliminary Blood - Venous - Lab Draw NO GROWTH AFTER 2 DAYS Anaerobic Blood Culture - Preliminary NO GROWTH AFTER 2 DAYS Med Orders - Current: Current Medications Bupropion HCl (Wellbutrin Xl) 300 mg PO DAILY [facility] Last Admin: 08/06/18 09:45 Dose: 300 mg Citalopram Hydrobromide (Celexa) 40 mg PO DAILY [facility] Last Admin: 08/06/18 09:45 Dose: 40 mg Clonazepam (Klonopin) 1 mg PO Q6H PRN PRN Reason: Anxiety Last Admin: 08/05/18 22:06 Dose: 1 mg Folic Acid (Folic Acid) 1 mg PO DAILY [facility] Last Admin: 08/06/18 09:45 Dose: 1 mg Potassium Chloride/Dextrose/Sod Cl (D5 1/2 Ns W/ 20 Meq/L Kcl) 1,000 mls @ 150 mls/hr IV ASDIRECTED [facility] Last Admin: 08/04/18 06:18 Dose: 150 mls/hr Ondansetron HCl (Zofran Odt) 4 mg PO Q6H PRN PRN Reason: nausea, able to take PO Ondansetron HCl (Zofran) 4 mg IV Q6H PRN PRN Reason: Nausea/Vomiting Discontinued Medications Atropine Sulfate (Atropine) 0.5 mg IVPUSH ONETIME ONE Stop: 08/03/18 19:45 Last Admin: 08/03/18 22:40 Dose: Not Given Atropine Sulfate (Atropine) 0.5 mg IVPUSH ONETIME ONE Stop: 08/03/18 19:48 Last Admin: 08/03/18 19:49 Dose: Not Given Atropine Sulfate (Atropine 0.1 Mg/Ml) Confirm Administered Dose 1 mg .ROUTE .STK -MED ONE Stop: 08/03/18 19:46 Last Admin: 08/03/18 19:49 Dose: 1 mg Atropine Sulfate (Atropine) 0.5 mg IVPUSH ONETIME ONE Stop: 08/04/18 04:35 Last Admin: 08/04/18 04:59 Dose: 0.5 mg Atropine Sulfate (Atropine 0.1 Mg/Ml) Confirm Administered Dose 1 mg .ROUTE .STK -MED ONE Stop: 08/04/18 04:50 Last Admin: 08/04/18 04:59 Dose: Not Given Sodium Chloride (Normal Saline) 1,000 mls @ 999 mls/hr IV ASDIRECTED TEVIN Last Admin: 08/03/18 19:12 Dose: 999 mls/hr Lactated Ringer's (Ringers, Lactated) 1,000 mls @ 999 mls/hr IV .BOLUS ONE Stop: 08/03/18 23:19 Last Admin: 08/03/18 22:50 Dose: 999 mls/hr Naloxone HCl (Narcan) 0.4 mg IVPUSH ONETIME ONE Stop: 08/03/18 19:28 Last Admin: 08/03/18 20:09 Dose: 0.4 mg Thiamine HCl (Vitamin B-1) 100 mg IVPUSH ONETIME ONE Stop: 08/03/18 22:47 Last Admin: 08/03/18 23:21 Dose: 100 mg - Exam Quality Assessment: Denies: Supplemental Oxygen, Skin Breakdown, Restraints General: Reports: Alert, Oriented, Cooperative, No Acute Distress HEENT: Reports: Pupils Equal, Pupils Reactive, EOMI, Mucous Membr. Moist/[place] Neck: Reports: Supple, Trachea Midline, No JVD, No Thyromegaly Lungs: Reports: Clear to Auscultation, Normal Respiratory Effort Cardiovascular: Reports: Regular Rate, Regular Rhythm, No Murmurs GI/Abdominal Exam: Normal Bowel Sounds, Soft, Non-Tender, No Organomegaly, No Distention Back Exam: Reports: Normal Inspection Extremities: Normal Inspection, Normal Range of Motion, Non-Tender, No Pedal Edema, Normal Capillary Refill Skin: Reports: Warm, Dry, Intact Neurological: Reports: No New Focal Deficit Psy/Mental Status: Reports: Alert, Normal Affect, Normal Mood
== END 2018-08-06 12:00 | DRG 918 ==
LOC: JD.ED 18:49 → JD.ICU 21:32
PROVIDERS: ADMIT Family Medicine; ATTEND Family Medicine
DX: T48.1X1A Poisoning by skeletal muscle relaxants [neuromuscular blocking agents], accidental (unintentional), initial encounter (principal); F15.93 Other stimulant use, unspecified with withdrawal; R00.1 Bradycardia, unspecified; I95.9 Hypotension, unspecified; R68.0 Hypothermia, not associated with low environmental temperature; F32.9 Major depressive disorder, single episode, unspecified; J44.9 Chronic obstructive pulmonary disease, unspecified; M19.90 Unspecified osteoarthritis, unspecified site; G89.29 Other chronic pain; M54.2 Cervicalgia; F41.9 Anxiety disorder, unspecified; E03.9 Hypothyroidism, unspecified; D64.9 Anemia, unspecified; F17.210 Nicotine dependence, cigarettes, uncomplicated; M54.5 Low back pain; Z88.1 Allergy status to other antibiotic agents; Z91.040 Latex allergy status; Z87.442 Personal history of urinary calculi; Z98.51 Tubal ligation status
CPT/HCPCS: 36415; 70450; 70450-26; 71045; 71045-26; 80053; 80306; 81001; 82009; 82550; 82553; 82962; 83605; 83735; 83880; 83930; 84443; 84484; 85007; 85025; 85027; 85652; 86140; 87040; 93005; 93010; 96361; 96374; 96375; 99285; 99285-25; A9270-GY; G0480; J0461; J2310; J3411; J3480; J7040; J7120

== ENCOUNTER 2021-09-14 09:53 | Emergency (ER) | payer MEDICARE, MEDICAID ==
[2021-09-14 09:57] VITALS: BP 117/83; PULSE 74
[2021-09-14] MEDS ORDERED: Sodium Chloride 0.9% 10 ML Syringe FLUSH PRN (10:14)
[2021-09-14] MEDS ORDERED: Ondansetron 4 MG/2 ML SDV IVPUSH ONE (10:14)
[2021-09-14] MEDS ORDERED: Sodium Chloride 0.9% 1,000 ML IV SCH (10:15)
== END 2021-09-14 16:10 | disposition home or self-care (01) ==
LOC: JD.ED 09:53
DX: R55 Syncope and collapse (principal); A08.4 Viral intestinal infection, unspecified; R00.1 Bradycardia, unspecified; J44.9 Chronic obstructive pulmonary disease, unspecified; E03.9 Hypothyroidism, unspecified; Z79.899 Other long term (current) drug therapy; Z88.1 Allergy status to other antibiotic agents; Z91.040 Latex allergy status
CPT/HCPCS: 36415; 80053; 80307; 83735; 85025; 93005; 96361; 96374; 99284; J2405; J3490; J7030

== ENCOUNTER 2022-12-13 22:03 | Emergency (ER) | payer MEDICAID, MEDICARE ==
[2022-12-13] MEDS ORDERED: Ketorolac 60 MG/2 ML SDV IM ONE (22:18)
[2022-12-13 23:43] VITALS: BP 121/79; PULSE 59
== END 2022-12-13 23:30 | disposition home or self-care (01) ==
LOC: JD.ED 22:03
DX: S63.502A Unspecified sprain of left wrist, initial encounter (principal); J44.9 Chronic obstructive pulmonary disease, unspecified; Z88.1 Allergy status to other antibiotic agents; Z91.040 Latex allergy status; W01.0XXA Fall on same level from slipping, tripping and stumbling without subsequent striking against object, initial encounter
CPT/HCPCS: 73110; 96372; 99283; J1885; 99282

== ENCOUNTER 2023-06-08 13:45 | Emergency (ER) | payer MEDICARE ==
[2023-06-08 14:01] VITALS: BP 114/79; PULSE 67
[2023-06-08 14:43] LABS: BASOPHILS ABSOLUTE AUTO 0.1 K/mm3 (0.0-0.2); BASOPHILS PERCENT AUTO 1.2 % (0.0-1.0); EOSINOPHILS ABSOLUTE AUTO 0.4 K/mm3 (0.0-0.4); EOSINOPHILS PERCENT AUTO 5.2 % (0.0-6.0); HEMATOCRIT 35.4 % (37.0-47.0); HEMOGLOBIN 11.2 gm/dl (12.0-16.0); IMMATURE GRAN ABSOLUTE AUTO 0.01 K/mm3 (0.00-0.05); IMMATURE GRAN PERCENT AUTO 0.1 % (0.0-0.4); LYMPHOCYTES ABSOLUTE AUTO 2.1 K/mm3 (1.0-4.8); LYMPHOCYTES PERCENT AUTO 30.6 % (24.0-44.0); MEAN CORPUSCULAR HEMOGLOBIN 30.4 pg (28.0-32.0); MEAN CORPUSCULAR HGB CONC 31.6 g/dl (32.0-36.0); MEAN CORPUSCULAR VOLUME 96.2 fl (83.0-99.0); MEAN PLATELET VOLUME 9.7 fl (9.4-12.3); MONOCYTES ABSOLUTE AUTO 0.6 K/mm3 (0.0-0.8); MONOCYTES PERCENT AUTO 9.2 % (0.0-8.0); NEUTROPHILS ABSOLUTE AUTO 3.7 K/mm3 (1.8-7.7); NEUTROPHILS PERCENT AUTO 53.7 % (41.0-71.0); PLATELET COUNT,PLT 306 K/mm3 (150-400); RED BLOOD CELL COUNT 3.68 M/mm3 (4.10-5.30); WHITE BLOOD CELL COUNT,WBC 6.93 K/mm3 (3.9-11.3)
[2023-06-08 15:09] LABS: A/G RATIO 1.3 (1-2); ANION GAP 11.2 (5-15); BILIRUBIN TOTAL 0.4 mg/dL (0.2-1.0); CALCIUM 9.5 mg/dL (8.5-10.1); CREATININE 0.5 mg/dL (0.55-1.02); EST CRCL DRUG DOSING (CG) 93.6 mL/min; POTASSIUM,K 4.2 mEq/L (3.5-5.1); PROTEIN TOTAL,TP 5.4 g/dl (6.4-8.2)
[2023-06-08 15:12] LABS: CORONAVIRUS COVID-19 NAA NEGATIVE (NEGATIVE); INFLUENZA A NAA NEGATIVE (NEGATIVE); RESPIRATORY SYNCYTIAL VIR NAA NEGATIVE (NEGATIVE)
[2023-06-08] MEDS ORDERED: Sodium Chloride 0.9% 1,000 ML IV SCH (16:30)
== END 2023-06-08 16:44 | disposition left against medical advice (07) ==
LOC: JD.ED 13:45
DX: R07.89 Other chest pain (principal); J44.9 Chronic obstructive pulmonary disease, unspecified; Z88.1 Allergy status to other antibiotic agents; Z91.040 Latex allergy status
CPT/HCPCS: 0241U; 36415; 71046; 80053; 84484; 85025; 93005; 99285